=== PATIENT | male | born 1950 | race Caucasian/White ===

== ENCOUNTER 2020-02-24 19:46 | Emergency (ER) | payer MEDICARE, OTHER, SELFPAY ==
--- NOTE | 2020-02-24 19:51 | ED.SKABFB ---
HPI - Skin/Abscess/Foreign Bdy General Chief complaint: Wound/Laceration Stated complaint: thumb laceration Time Seen by Provider: 02/24/20 19:50 Source: patient and RN notes reviewed Limitations: no limitations History of Present Illness HPI narrative: The right-handed patient-- a smoker/ drinker, previously mostly healthy [employer] retiree with immunizations UTD-- presents with laceration. 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 He complains of mild pain and bleeding that is worse with motion, better with compression, from a transverse ,~2 cm, deep dermal laceration, at the flexor tuft/distal phalanges. No numbness, weakness, nail bed involvement Related Data Home Medications Medication Instructions Recorded Confirmed lisinopril 20 mg DAILY 02/24/20 02/24/20 Allergies Allergy/AdvReac Type Severity Reaction Status Date / Time No Known Allergies Allergy Verified 02/24/20 20:12 Review of Systems Review of Systems: Narrative: General/Constitutional: No weight loss,fever Eyes: N0: Redness,discharge Ears/Nose/Throat: No: Epistaxis,ear discharge Respiratory: Denies: Hemoptysis Gastrointestinal: No Vomiting, Bleeding-rectal Skin: No Lumps, eruption Neurologic: No Focal Weakness,Sz Hematologic: Denies: Petechiae/Purpura Psychiatric: No: Suicida ideationl All Other Systems: Reviewed and Negative FOR[facility]LY [facility], [facility] Social History Social History Gender identity (if verbalized by the patient): Male Comments At time of signature, agree with nursing past medical, surgical, social and family history. There is no relevant family history pertinent to the presenting complaint Exam Narrative: Exam Narrative: General Appearance: Well appearing,, Conjunctiva clear Ears: External ear normal, Auditory canal normal Nose: Normal nose, Nares clear Mouth/Throat: Normal appearing, Normal lips, Supple Respiratory: Airway patent, No respiratory distress Skin: Warm, Dry, Normal color; 2 cm, transverse flexor, deep dermal laceration of the left thumb tuft MS thumb: Nl strength (mostly intact, limited flexion/extension by pain), Tenderness- tuft, with mild decreased ROM), no swelling , Other (no anterior drawer, no collateral laxity, Neurological: A&O x3, Normal affect Course Vital Signs Vital signs: Vital Signs Temperature 97.4 F L 02/24/20 19:57 Pulse Rate 99 01/12/21 19:57 Respiratory Rate 18 02/24/20 19:57 Blood Pressure 159/90 H 02/24/20 19:57 Pulse Oximetry 97 02/24/20 19:57 Temperature 97.4 F L 02/24/20 19:57 Pulse Rate 99 02/24/20 19:57 Respiratory Rate 18 02/24/20 19:57 Blood Pressure 159/90 H 02/24/20 19:57 Pulse Oximetry 97 02/24/20 19:57 Procedures Laceration Laceration 1: Date: 02/24/20 Site: hand (thumb) Side (If applicable): left Size (cm): 2 Description: linear Depth: simple, single layer Local Anesthetic: other anesthetic (LET) Amount of anesthesia used (mL): 2 Pre-repair: irrigated ====== Skin Level ====== Skin layer closed with: nylon Size (cm): 5-0 Number of sutures: 3 Technique: simple, interrupted ====== Subcutaneous Layer ====== ====== Muscle Layer ====== ====== Tendon Layer ====== Discharge Plan Discharge Clinical Impression: Laceration Patient Disposition: Home, Self-Care Condition: Improved Instructions: Finger Laceration (ED) Additional Instructions: Remove stitches in about 6 days, then Steri-Strip/butterfly bandage Prescriptions: New mupirocin 2 % ointment 1 applic TOPICAL TID Qty: 30 RF: 0 cephalexin 500 mg capsule 500 mg PO TID Qty: 10 RF: 0 No Action lisinopril 20 mg tablet 20 mg DAILY RF: 0 Follow-up/Referrals: UNKNOWN,DOCTOR [Primary Care Provider] -
[2020-02-24 19:57] VITALS: BP 159/90; PULSE 99; RESP 18; TEMP 36.3; O2SAT 97
[2020-02-24] MEDS: LIDOCAINE, EPINEPHRINE, TETRACAINE VISCOUS SOLN 3 ML TOPICAL (19:59)
--- NOTE | 2020-02-24 20:32 | PC.NURSE ---
corrected 1.5 cm laceraton to left thumb
== END 2020-02-24 20:28 | disposition home or self-care (01) ==
PROVIDERS: Emergency Provider Emergency Medicine
DX: S61.012A Laceration without foreign body of left thumb without damage to nail, initial encounter (principal); W26.0XXA Contact with knife, initial encounter; I10 Essential (primary) hypertension
CPT/HCPCS: 12001; 99213; G0463

== ENCOUNTER 2022-05-26 08:30 | Outpatient (CLI) | payer MEDICARE, OTHER, SELFPAY ==
--- NOTE | ~2022-05-26 | CT_ITS ---
EXAMINATION: CT lung screening DATE: 05/26/2022 08:50 INDICATION: Screening for lung cancer. History of tobacco dependence. TECHNIQUE: Computed tomography (CT) of the chest was performed without intravenous contrast. The dose -length product was 121.88 mGy-cm. Automated exposure control and iterative reconstruction technique were employed. COMPARISON: Chest x-ray dated 05/20/2012 FINDINGS: There is atherosclerosis of the aorta, great vessels and coronary arteries. Heart size norm al. No significant pleural or pericardial effusion. Upper abdomen is unremarkable. No thoracic lympha denopathy. There are calcified mediastinal lymph nodes, consistent with chronic granulomatous disease . Severe bullous emphysema. There is a 2 mm right upper lobe nodule, image 42. There is a 4 mm right middle lobe nodule, image 109. There is dependent atelectasis. Calcified granuloma left lung base. No acute osseous abnormality. No focal lytic or blastic lesions. IMPRESSION: 1. Lung-RADS category 2: Benign appearance or behavior. Continue annual screening with noncontrast lo w-dose chest CT in 12 months. Reviewed, dictated and finalized at location B. IMPRESSION: 1. Lung-RADS category 2: Benign appearance or behavior. Continue annual screeni ng with noncontrast low-dose chest CT in 12 months.
== END 2022-05-26 08:31 | disposition home or self-care (01) ==
PROVIDERS: PCP Family Medicine; Visit Provider Family Medicine
DX: Z12.2 Encounter for screening for malignant neoplasm of respiratory organs (principal); F17.210 Nicotine dependence, cigarettes, uncomplicated
CPT/HCPCS: 71271

== ENCOUNTER 2022-06-27 00:49 | Day surgery (SDC) | payer MEDICARE, OTHER, SELFPAY ==
[2022-06-14 13:29] VITALS: BMI 24.5
--- NOTE | 2022-06-27 09:32 | P.PNAN_ITS ---
Anes - Initial Pre Proc Eval Procedure: Operation Date: 06/27/22 13:00 Proposed Procedures p Esophagogastroduodenoscopy & Screening Colonoscopy - Mj Nino MD Date/Time: 06/27/22 09:32 Surgeon: Mj Nino MD Pre Op Diagnosis: neoplasm screening, Upper Abdominal Pain Patient Data Age: 71 Gender: M Height: 1.73 m Weight: 73 kg Allergies Allergy/AdvReac Type Severity Reaction Status Date / Time No Known Allergies Allergy Verified 06/27/22 10:42 Home Medications Medication Instructions Recorded Confirmed Type albuterol sulfate 90 mcg/actuation 1 puff inhalation Q4H PRN Wheezing 05/15/22 06/27/22 History aerosol inhaler amlodipine 5 mg tablet 5 mg PO DAILY #90 tabs 05/15/22 06/27/22 Rx lisinopril 20 mg tablet 20 mg PO DAILY #90 tabs 05/22/22 06/27/22 Rx umeclidinium 62.5 mcg-vilanterol 1 inh inhalation DAILY #60 ea 05/22/22 06/27/22 Rx 25 mcg/actuation powdr for inhalation rosuvastatin 5 mg tablet 5 mg PO DAILY #10 tabs 05/25/22 06/27/22 Rx Patient hx anesthesia problems: none Family hx anesthesia problems: none Results Review: All pre-operative results and documents have been reviewed as part of the pre- operative evaluation. [facility] Past Medical History Medical History (Updated 05/15/22 @ 16:29 by Goyo Dinero MD) Cigarette nicotine dependence with nicotine-induced disorder COPD (chronic obstructive pulmonary disease) Essential (primary) hypertension Hypercholesteremia Obstructive sleep apnea Social History Social History (Updated 05/15/22 @ 16:12 by Milena Fernandez MA) Smoking packs per day: 0.5 Smoking cigarettes per day: 10.0 Years smoked: 50 Smoking pack-years: 25.00 Smoking status: Current every day smoker Tobacco type: cigarettes Second hand tobacco smoke exposure: Yes Alcohol intake: current Drinks per week: 15 Substance use: never Substance use type: does not use Lack of Transportation: No Lack of Food: Never True Current Housing: I Have Housing Concerned About Future Housing: No Difficulty Paying Gas/Electric Bills: No Difficulty Paying for Meds: No Currently Unemployed: No Difficulty w/ Childcare or Family Care: No Living arrangements: with family Occupation/Education: retired Gender identity (if verbalized by the patient): Male Sexual Orientation (if Verbalized by the Patient): Straight or Heterosexual Spiritual care concerns: No Anes - Eval Final PreProcedure Day of Procedure 06/27/22 09:32 Patient weight: obese Heart: regular rate and rhythm Lungs: clear to auscultation and normal air movement Airway: Mallampati scale class II Neurological: alert and oriented Last oral intake: >/= 8 hours ASA classification: III Emergent: no Anesthetic plan: proceed Anesthesia type and monitoring: general GIVS Results Review: All pre-operative results and documents have been reviewed as part of the pre-operative evaluation. Informed Consent: The patient's anesthetic plan and its attendant risks and benefits were discussed with the patient/family/POA. Questions were solicited and answers provided to the satisfaction of the patient/family/POA.
[2022-06-27 10:45] VITALS: BP 128/74; PULSE 93; RESP 18; TEMP 36.5; O2SAT 97; BMI 24.5
[2022-06-27] MEDS: LACTATED RINGERS 1,000 ML 150 ML IV CONT (10:56)
--- NOTE | 2022-06-27 11:18 | PM.HPGS ---
History of Present Illness History of Present Illness Consent: Risks, benefits, and alternatives have been discussed and questions answered. Patient agrees to proceed with procedure. Chief complaint: neoplasm screening, Upper Abdominal Pain Narrative: Faustino Magallanes is a 71 year old male Seen at the request of Dr. Dinero. Patient per request colonoscopy. Patient has had 2 prior colonoscopies that were unremarkable. Patient reports his weight appetite bowel movements are normal. In the past he had bleeding attributed to hemorrhoids. He underwent hemorrhoidectomy and has had no further bleeding. Currently bowel habits are normal. He recently complains of rather vague mid epigastric pain of uncertain nature. This is not related to diet. Not related to activity. Not related to bowel habits. He states that is a type of nausea and rather discomfort. He is not tender. He requests EGD to evaluate more thoroughly. Patient denies any prior history of ulcer disease. His family history is noncontributory. Review of Systems Review of Systems: Review of systems noncontributory. [facility] Past Medical History Medical History (Updated 06/27/22 @ 11:20 by Mj Nino MD) Cigarette nicotine dependence with nicotine-induced disorder COPD (chronic obstructive pulmonary disease) Essential (primary) hypertension Hypercholesteremia Obstructive sleep apnea Social History Social History (Updated 05/15/22 @ 16:12 by Mliena Fernandez MA) Smoking packs per day: 0.5 Smoking cigarettes per day: 10.0 Years smoked: 50 Smoking pack-years: 25.00 Smoking status: Current every day smoker Tobacco type: cigarettes Second hand tobacco smoke exposure: Yes Alcohol intake: current Drinks per week: 15 Substance use: never Substance use type: does not use Lack of Transportation: No Lack of Food: Never True Current Housing: I Have Housing Concerned About Future Housing: No Difficulty Paying Gas/Electric Bills: No Difficulty Paying for Meds: No Currently Unemployed: No Difficulty w/ Childcare or Family Care: No Living arrangements: with family Occupation/Education: retired Gender identity (if verbalized by the patient): Male Sexual Orientation (if Verbalized by the Patient): Straight or Heterosexual Spiritual care concerns: No Meds Home Medications and Allergies Home Medications Medication Instructions Recorded Confirmed Type albuterol sulfate 90 mcg/actuation 1 puff inhalation Q4H PRN Wheezing 05/15/22 06/27/22 History aerosol inhaler amlodipine 5 mg tablet 5 mg PO DAILY #90 tabs 05/15/22 06/27/22 Rx lisinopril 20 mg tablet 20 mg PO DAILY #90 tabs 05/22/22 06/27/22 Rx umeclidinium 62.5 mcg-vilanterol 1 inh inhalation DAILY #60 ea 05/22/22 06/27/22 Rx 25 mcg/actuation powdr for inhalation rosuvastatin 5 mg tablet 5 mg PO DAILY #10 tabs 05/25/22 06/27/22 Rx Allergies Allergy/AdvReac Type Severity Reaction Status Date / Time No Known Allergies Allergy Verified 06/27/22 10:42 Vital Signs Vital Signs - 24 hr 06/27/22 10:45 Temperature 97.7 F Pulse Rate 93 Respiratory Rate 18 Blood Pressure 128/74 Pulse Oximetry 97 Oxygen Delivery Room Air Exam Narrative: Physical exam reveals patient to be alert. Vital signs stable. HEENT exam is unremarkable. Patient is anicteric. Lungs are clear to auscultation and percussion. Heart is without murmur or extra sounds. Abdomen bowel sounds are present soft nontender with no organomegaly. Digital external rectal exam normal. Assessment and Plan Assessment and plan (1) Encounter for screening colonoscopy: Code(s): Z12.11 - Encounter for screening for malignant neoplasm of colon Status: Acute Assessment and Plan: Patient presents for screening colonoscopy. He appears to be at average risk for colon polyps. Further recommendations will be given after endoscopy. (2) Abdominal pain:
--- NOTE | 2022-06-27 12:09 | SUR.OPER ---
EGD completed 1201, Colonoscopy started at 1206
[2022-06-27] MEDS: SIMETHICONE ORAL SUSPENSION 20 MG/0.3 ML 30 ML BOTTLE 0.6 ML IRRIGATION (12:13)
[2022-06-27 12:23] VITALS: BP 93/58; PULSE 81; RESP 25; O2SAT 96
[2022-06-27 12:33] VITALS: BP 107/66; PULSE 77; RESP 17; O2SAT 96
[2022-06-27 12:43] VITALS: BP 128/73; PULSE 64; RESP 21; O2SAT 98
== END 2022-06-27 12:56 | disposition home or self-care (01) ==
PROVIDERS: PCP Family Medicine; Visit Provider Internal Medicine Gastroenterology
PROC: 0DJ08ZZ Inspection of Upper Intestinal Tract, Via Natural or Artificial Opening Endoscopic (ICD-10-PCS; CPT 43235; principal; 2022-06-27 13:00)
DX: Z12.11 Encounter for screening for malignant neoplasm of colon (principal); K52.9 Noninfective gastroenteritis and colitis, unspecified; K64.8 Other hemorrhoids; K57.30 Diverticulosis of large intestine without perforation or abscess without bleeding; J44.9 Chronic obstructive pulmonary disease, unspecified; I10 Essential (primary) hypertension; E78.00 Pure hypercholesterolemia, unspecified; G47.33 Obstructive sleep apnea (adult) (pediatric); F17.210 Nicotine dependence, cigarettes, uncomplicated; Z79.51 Long term (current) use of inhaled steroids
CPT/HCPCS: 45380; 87081; 88305; J2704; J7120

== ENCOUNTER 2023-03-13 20:41 | Emergency (ER) | payer MEDICARE, OTHER, SELFPAY ==
--- NOTE | ~2023-03-13 | XR_ITS ---
Clinical Indication: Palpitations PA and lateral views of the chest: Comparison: 05/20/2012 Findings: There is linear scarring or atelectasis right lung base. Calcified granuloma noted left pawan g base. The lungs are otherwise clear, without evidence of focal consolidation or pleural effusion. P ossible COPD. Cardiomediastinal silhouette is within normal limits. Bones and soft tissues are unrema rkable. Impression: Probable COPD. No acute pulmonary abnormality evident otherwise. Reviewed, dictated and finalized at location M. L MAKER Impression: Probable COPD. No acute pulmonary abnormality evident otherwise.
[2023-03-13 20:49] VITALS: BP 199/101; PULSE 98; RESP 20; TEMP 36.5; O2SAT 98
--- NOTE | 2023-03-13 20:51 | ECG_ITS ---
Measurements Intervals [place] Rate: 84 P: 35 HI: 143 QRS: 33 QRSD: 93 T: 58 QT: 361 QTc: 428 Interpretive Statements SINUS RHYTHM NORMAL ECG NO PREVIOUS ECG AVAILABLE FOR COMPARISON Electronically Signed On 03-13-2023 21:47:21 RN OR LPN by Jerald Ruiz D.O.
[2023-03-13 23:44] VITALS: PULSE 87
[2023-03-13 23:45] VITALS: BP 160/99; PULSE 86; RESP 18; TEMP 36.6; O2SAT 96
[2023-03-13 23:47] VITALS: O2SAT 96
--- NOTE | 2023-03-14 | ECG_ITS ---
Measurements Intervals [place] Rate: 82 P: 24 [place]: 156 QRS: 15 QRSD: 90 T: 55 QT: 368 QTc: 431 Interpretive Statements SINUS RHYTHM NORMAL ECG COMPARED TO ECG 03/13/2023 20:54:00 NO SIGNIFICANT CHANGES Electronically Signed On 03-14-2023 6:46:10 STOCKLAYER by Jerald Ruiz D.O.
[2023-03-14 00:10] LABS: Basophils Percent Auto 0.3 % (0.2-1.2); Eosinophils Percent Auto 0.1 % (0-4.4); Hematocrit 47.5 % (42.0-52.0); Hemoglobin 15.9 g/dL (14.0-18.0); Immature Granulocyte Absolute 0.04 K/mm3 (0.00-0.031); Immature Granulocyte Percent A 0.3 % (0-0.5); Lymphocytes Absolute Auto 2.07 K/mm3 (0.9-3.2); Mean Corpuscular HGB Conc 33.5 g/dl (32-36); Mean Corpuscular Hemoglobin 35.4 pg (26-34); Mean Corpuscular Volume 105.8 fl (80-100); Mean Platelet Volume 10.1 fl (7.4-10.4); Monocytes Absolute Auto 1.2 K/mm3 (0.1-0.6); Monocytes Percent Auto 9.9 % (2.6-8.5); Neutrophils Absolute Auto 8.8 K/mm3 (1.3-6.7); Neutrophils Percent Auto 72.4 % (45.5-73.1); Platelet Count Result 261 k/mm3 (150-375); Red Blood Count 4.49 M/mm3 (4.6-6.20); Red Cell Distribution Width 14.6 % (11.5-14.5); White Blood Count 12.2 K/mm3 (4.5-10.0)
[2023-03-14 00:17] LABS: Prothrombin Time 13.8 Seconds (11.1-14.7)
[2023-03-14 00:18] LABS: Alanine Aminotransferase 29 U/L (6-50); Albumin Level 4.3 g/dL (3.5-5.1); Alkaline Phosphatase 123 U/L (38-126); Anion Gap 8 mmol/L (8-16); Aspartate Amino Transferase 43 U/L (17-59); Bilirubin,Total 1.4 mg/dL (0.2-1.3); Blood Urea Nitrogen 9 mg/dL (9-20); Calcium 9.5 mg/dL (8.4-10.2); Carbon Dioxide 27 mmol/L (22-30); Chloride 102 mmol/L (98-107); Estimated CRCL calculation 78 ml/min; Estimated Glomerular Filt Rate > 60; Glucose 110 mg/dL (65-110); Lipase 57 U/L (23-300); Potassium 3.7 mmol/L (3.4-5.0); Sodium 137 mmol/L (137-145)
[2023-03-14 00:30] LABS: Troponin I < 0.012 ng/mL (0.000-0.034)
[2023-03-14 01:15] VITALS: BP 171/95; PULSE 72; RESP 16; O2SAT 95
--- NOTE | 2023-03-14 02:47 | ECG_ITS ---
Measurements Intervals [place] Rate: 72 P: 35 SC: 159 QRS: 16 QRSD: 89 T: 56 QT: 384 QTc: 423 Interpretive Statements SINUS RHYTHM NORMAL ECG COMPARED TO ECG 03/14/2023 00:06:09 NO SIGNIFICANT CHANGES Electronically Signed On 03-14-2023 6:10:12 INDUSTRIAL RELATIONS DIRECTOR by Jerald Ruiz D.O.
[2023-03-14 03:11] VITALS: BP 185/104; PULSE 74; RESP 18; O2SAT 92
[2023-03-14 03:30] LABS: Troponin I < 0.012 ng/mL (0.000-0.034)
--- NOTE | 2023-03-14 04:15 | ED.GENADULT ---
HPI - General Adult General Chief complaint: Arrhythmia/Palpitations Stated complaint: htn, palpitations Time Seen by Provider: 03/14/23 02:05 History of Present Illness HPI narrative: This is a 72-year-old male presents ED with chief complaint palpitations. Patient has been having a fluttering in his chest for several months. He has seen a hog cooler and has an appointment to get a Holter monitor in 2 days. Patient came in today because he noticed that in addition to his typical palpitations his blood pressure was elevated. The patient has recently been taking off of 1 of his blood pressure medications by his primary care physician. At this time the patient is resting comfortably with no flutter in his chest, no chest pain shortness of breath or other symptoms. Related Data Allergies Allergy/AdvReac Type Severity Reaction Status Date / Time No Known Allergies Allergy Verified 03/12/23 14:57 [facility] Past Medical History Medical History (Updated 03/14/23 @ 04:22 by Keron Mondragon MD) Alcohol use disorder, moderate, in early remission Atherosclerosis of aorta Atherosclerotic heart disease of [place] coronary artery without angina pectoris Cigarette nicotine dependence with nicotine-induced disorder COPD (chronic obstructive pulmonary disease) Essential (primary) hypertension GERD without esophagitis Hypercholesteremia Obstructive sleep apnea Family History Family History (Updated 03/13/23 @ 14:45 by CYNDI Santiago) Father Heart disease COPD (chronic obstructive pulmonary disease) Mother Dementia Social History Social History Smoking packs per day: 0.5 Smoking cigarettes per day: 10.0 Years smoked: 50 Smoking pack-years: 25.00 Smoking status: Current every day smoker Tobacco type: cigarettes Second hand tobacco smoke exposure: Yes Alcohol intake: current Drinks per week: 15 Substance use: never Substance use type: does not use Lack of Transportation: No Lack of Food: Never True Current Housing: I Have Housing Concerned About Future Housing: No Difficulty Paying Gas/Electric Bills: No Difficulty Paying for Meds: No Currently Unemployed: No Education: Associate Degree Difficulty w/ Childcare or Family Care: No Living arrangements: with family Occupation/Education: retired Gender identity (if verbalized by the patient): Male Sexual Orientation (if Verbalized by the Patient): Straight or Heterosexual Spiritual care concerns: No Exam Narrative: APPEARANCE: No apparent distress. Head: atraumatic. EYES: EOMI, NOSE: Atraumatic NECK: Trachea midline RESPIRATORY: No increased rate of breathing, clear to auscultation CARDIOVASCULAR: RRR, no peripheral edema ABDOMINAL: Non-distended MUSCULOSKELETAl: No obvious deformities, no significant tenderness to palpation over the ribcage, no crepitus NEURO: Alert. Moving 4/4 extremities SKIN:: Warm, dry. Normal color PSYCHIATRIC: Normal affect Course Vital Signs Vital signs: Vital Signs Temperature 97.7 F 03/13/23 20:49 Pulse Rate 98 03/13/23 20:49 Respiratory Rate 20 03/13/23 20:49 Blood Pressure 199/101 H 03/13/23 20:49 Pulse Oximetry 98 03/13/23 20:49 Temperature 97.8 F 03/13/23 23:45 Pulse Rate 74 03/14/23 03:11 Respiratory Rate 18 03/14/23 03:11 Blood Pressure 185/104 H 03/14/23 03:11 Pulse Oximetry 92 03/14/23 03:11 Oxygen Delivery Room Air 03/13/23 23:47 Medical Decision Making [facility] Narrative Medical decision making narrative: -Course: 72-year-old male presenting ED with chief complaint of palpitations and elevated blood pressure. Patient actually just been taken off of the blood pressure medication by his primary care physician. He may need to go back on it. The rest the patient's workup was unremarkable including 2- troponins chest x-ray and EKG. Patient has foll
[2023-03-14 04:29] VITALS: BP 145/65; PULSE 77; RESP 16; TEMP 36.6; O2SAT 95
== END 2023-03-14 04:30 | disposition home or self-care (01) ==
PROVIDERS: Emergency Provider Emergency Medicine; PCP Family Medicine
DX: R00.2 Palpitations (principal); I10 Essential (primary) hypertension; J44.9 Chronic obstructive pulmonary disease, unspecified; K21.9 Gastro-esophageal reflux disease without esophagitis; I70.0 Atherosclerosis of aorta; I25.10 Atherosclerotic heart disease of native coronary artery without angina pectoris; E78.00 Pure hypercholesterolemia, unspecified; G47.33 Obstructive sleep apnea (adult) (pediatric); F17.210 Nicotine dependence, cigarettes, uncomplicated
CPT/HCPCS: 36415; 71046; 80053; 83690; 84484; 85025; 85610; 85730; 93005; 99284

== ENCOUNTER 2023-05-29 10:54 | Outpatient (CLI) | payer MEDICARE, OTHER, SELFPAY ==
--- NOTE | ~2023-05-29 | CT_ITS ---
CT Scan of the Chest without Contrast: Clinical Indication: Lung cancer screening, nicotine dependence Technique: Contiguous sections were acquired throughout the chest without intravenous contrast. Dose reduction technique was used on this scan by utilizing automated exposure control and iterative recon struction technique. The dose-length product (DLP) was 95.81 mGy-cm. Findings: There is no evidence of any significant mediastinal, hilar or axillary lymphadenopathy. Atherosclerot ic calcifications of the aorta and coronary arteries are present. There is no evidence of pleural or pericardial effusion. There is severe emphysema with biapical bullous change. There is scarring at the lingula calcified gr anuloma. There is a subcentimeter peripheral right upper lobe pulmonary nodule (axial image 5). Images through the upper abdomen reveal no abnormalities. Impression: Lung RADS 2: Benign appearance. 12 month follow-up screening CT advised. Severe emphysema. Reviewed, dictated and finalized at [facility]. Impression: Lung RADS 2: Benign appearance. 12 month follow-up screening CT advised. Severe emphysema.
== END 2023-05-29 10:55 | disposition home or self-care (01) ==
LOC: ANHIMG 10:54
PROVIDERS: PCP Family Medicine; Visit Provider Family Medicine
DX: Z12.2 Encounter for screening for malignant neoplasm of respiratory organs (principal); Z87.891 Personal history of nicotine dependence; J43.9 Emphysema, unspecified
CPT/HCPCS: 71271

== ENCOUNTER 2023-07-31 14:29 | Outpatient (CLI) | payer MEDICARE, OTHER, SELFPAY ==
--- NOTE | ~2023-07-31 | CT_ITS ---
EXAMINATION: CT abdomen pelvis wo con DATE: 07/31/2023 14:45 INDICATION: Epigastric abdominal pain. TECHNIQUE: Computed tomography (CT) of the abdomen and pelvis was performed without intravenous contr ast. Automated exposure control and iterative reconstruction technique were employed. The dose-length product was 305.91 mGy-cm. COMPARISON: None. FINDINGS: The visualized portions of the lung bases demonstrate emphysema and mild atelectasis and sc arring. A calcified left lung nodule is consistent with old granulomatous disease. No pleural effusio n. The heart size is normal. No pericardial effusion. There is diffuse hepatic steatosis. The gallbla dder is normal. Calcifications in the spleen are consistent with old granulomatous disease. The pancr eas, adrenal glands, and right kidney are normal. There are hemorrhagic cysts in left kidney measurin g up to 9 mm. There is diverticulosis of the colon without evidence of diverticulitis. There are no d ilated loops of bowel. The appendix is normal. The prostate is mildly enlarged. There is calcified at herosclerosis of the aorta and many of the other arteries. There are no pathologically enlarged lymph nodes. There is no free intraperitoneal fluid. There is severe lower lumbar spondylosis. IMPRESSION: 1. Diffuse hepatic steatosis. 2. Emphysema. Reviewed, dictated and finalized at location A.
== END 2023-07-31 14:30 | disposition home or self-care (01) ==
LOC: ANHIMG 14:30
PROVIDERS: PCP Family Medicine; Visit Provider Family Medicine
DX: R63.4 Abnormal weight loss (principal); R63.0 Anorexia; R10.13 Epigastric pain; K76.0 Fatty (change of) liver, not elsewhere classified; J43.9 Emphysema, unspecified
CPT/HCPCS: 74176

== ENCOUNTER 2023-10-21 17:22 | Emergency (ER) | payer MEDICARE, OTHER, SELFPAY ==
--- NOTE | 2023-10-21 17:26 | ED.EXTPRO ---
HPI - Extremity Problem General Chief complaint: Skin/Abscess/Foreign Body Stated complaint: lt bicep injury Time Seen by Provider: 10/21/23 17:25 Source: patient Mode of arrival: ambulatory Limitations: no limitations History of Present Illness HPI Narrative: Faustino is a 72-year-old male patient presenting to the clinic today with complaints of a left skin tear to the left upper arm that occurred today. He reports he fell in a ditch home. Tetanus is up today within the last 5 years. Reports that this stitches a drainage ditch with a lot of irrigation service concerned about infection. Related Data Home Medications Medication Instructions Recorded Confirmed aspirin 81 mg tablet,delayed 81 mg PO DAILY 10/03/23 10/21/23 release mecobalamin (vitamin B12) 1,000 1,000 mcg PO DAILY 10/03/23 10/21/23 mcg chewable tablet melatonin 10 mg capsule 10 mg PO QHS 10/03/23 10/21/23 omeprazole 20 mg capsule,delayed 20 mg PO DAILY 10/21/23 10/21/23 release Allergies Allergy/AdvReac Type Severity Reaction Status Date / Time No Known Allergies Allergy Verified 10/21/23 17:27 Review of Systems Review of Systems: Pertinent positives per HPI. Patient denies any fever, chills, rash, headache, visual changes, dizziness, cough, runny nose, sore throat, shortness of breath, chest pain, palpitations, nausea, vomiting, diarrhea, constipation, abdominal pain, or any urinary issues. [facility] Past Medical History Medical History Alcohol use disorder, moderate, in early remission Atherosclerosis of aorta Atherosclerotic heart disease of [place] coronary artery without angina pectoris Cigarette nicotine dependence with nicotine-induced disorder COPD (chronic obstructive pulmonary disease) Essential (primary) hypertension GERD without esophagitis Hypercholesteremia Major depressive disorder Nonsustained paroxysmal ventricular tachycardia Obstructive sleep apnea Family History Family History Father Heart disease COPD (chronic obstructive pulmonary disease) Mother Dementia Social History Social History Smoking packs per day: 0.5 Smoking cigarettes per day: 10.0 Years smoked: 50 Smoking pack-years: 25.00 Smoking status: Current every day smoker Tobacco type: cigarettes Second hand tobacco smoke exposure: Yes Alcohol intake: current Drinks per week: 15 Substance use: never Substance use type: does not use Do You Feel Safe in your Home?: Yes Lack of Transportation: No Lack of Food: Never True Current Housing: I Have Housing Concerned About Future Housing: No Difficulty Paying Gas/Electric Bills: No Difficulty Paying for Meds: No Currently Unemployed: No Education: Associate Degree Difficulty w/ Childcare or Family Care: No Living arrangements: with family Occupation/Education: retired Gender identity (if verbalized by the patient): Male Sexual Orientation (if Verbalized by the Patient): Straight or Heterosexual Spiritual care concerns: No Comments At the time of my signature, I reviewed and agree with the nursing past medical, surgical, social, and family history. There is no relevant family history pertinent to the patient complaint. Exam Narrative: General: Well-developed, well nourished, in no apparent distress Head: Normocephalic, atraumatic. Cardio: Regular rate and rhythm, s1 and s2 normal, no murmur appreciated. Resp: Clear to auscultation bilaterally, no rhonchi, rales, wheezing or rubs. Integumentary: [place], warm, and dry, complete superficial skin tear measuring 9.5 by 7 cm to the left upper arm. Bleeding controlled Course Course Emergency Course: Portions of this record may have been created with voice recognition software. Level of Care: Express Care
[2023-10-21 17:35] VITALS: BP 110/59; PULSE 78; RESP 18; TEMP 36.4; O2SAT 96
== END 2023-10-21 17:48 | disposition home or self-care (01) ==
PROVIDERS: Emergency Provider Nurse Practitioner Family; PCP Family Medicine
DX: S41.112A Laceration without foreign body of left upper arm, initial encounter (principal); W19.XXXA Unspecified fall, initial encounter; F17.210 Nicotine dependence, cigarettes, uncomplicated; I70.0 Atherosclerosis of aorta; I25.10 Atherosclerotic heart disease of native coronary artery without angina pectoris; J44.9 Chronic obstructive pulmonary disease, unspecified; I10 Essential (primary) hypertension; K21.9 Gastro-esophageal reflux disease without esophagitis; E78.00 Pure hypercholesterolemia, unspecified; Z79.82 Long term (current) use of aspirin
CPT/HCPCS: 99212; G0463

== ENCOUNTER 2024-05-19 11:21 | Outpatient (CLI) | payer MEDICARE, OTHER, SELFPAY ==
--- NOTE | ~2024-05-19 | XR_ITS ---
AP and oblique views of the left ribs Clinical History: Pain Findings: Probable fractures of the posterior left second and third ribs. There is a comminuted acute fracture of the left mid clavicle, with inferior displacement of the major distal fracture fragment by one full shaft width.. Lungs are clear, without focal consolidation or pleural effusion, aside fro m calcified left basilar granuloma. Cardiomediastinal contour is within normal limits. Soft tissues a re unremarkable. Impression: Comminuted displaced acute fracture of the mid left clavicular shaft, as detailed above. Suspected fracture of the posterior left second and third ribs. Reviewed, dictated and finalized at location M. Impression: Comminuted displaced acute fracture of the mid left clavicular shaft, as detail ed above. Suspected fracture of the posterior left second and third ribs.
--- NOTE | ~2024-05-19 | XR_ITS ---
XR clavicle LT Ordering provider: Goyo Dinero MD History: . R07.81 - Pleurodynia . Comparison: None. FINDINGS: BONES: Comminuted fracture in the midshaft of the left clavicle with displacement of the fragments. JOINT SPACES: Normal. No acromioclavicular separation. SOFT TISSUES: Normal. IMPRESSION: Comminuted fracture of the midshaft of the left clavicle. Reviewed, dictated and finalized at location A.
== END 2024-05-19 11:22 | disposition home or self-care (01) ==
LOC: MICIMG 11:24
PROVIDERS: PCP Family Medicine; Visit Provider Family Medicine
DX: R07.81 Pleurodynia (principal); S42.022A Displaced fracture of shaft of left clavicle, initial encounter for closed fracture; X58.XXXA Exposure to other specified factors, initial encounter
CPT/HCPCS: 71100; 73000

== ENCOUNTER 2024-05-23 15:04 | Outpatient (CLI) | payer MEDICARE, OTHER, SELFPAY ==
--- NOTE | 2024-05-23 | ECG_ITS ---
Test Date: 2024-05-23 15:27:31 Measurements Intervals [place] Rate: 68 P: 38 OK: 183 QRS: 20 QRSD: 91 T: 61 QT: 398 QTc: 424 Interpretive Statements SINUS RHYTHM NORMAL ECG No previous ECG available for comparison Electronically Signed On 05-23-2024 15:32:18 CDT by Jerald Ruiz D.O.
--- OUTSIDE RECORDS SUMMARY | 2024-05-23 15:10 | XMS_ITS | Clinical Summary ---
Author Organization [facility] Address [address] [place] [address] Care Team Providers Care Heel Builder Machine Name Role Phone Gooy Dinero MD Primary Care Provider [phone] Allergies No known active allergies Medications VENTOLIN HFA 108 (90 Base) MCG/ACT inhaler 11/02/2017 Act nicole lisinopril 20 MG tablet Take 20 mg by mouth daily. 1 08/11/2018 Active Active Problems No known active problems Immunizations Name Administration Dates Next Due Tdap (Historical Only-select from magnify glass) 10/16/2018 Family History Medical History Relation Comments Emphysema Father Relation Status Comments Father Social History Tobacco Use Types Packs/Day Years Used Date Smoking Tobacco: Every Day Cigarettes Smokeless Tobacco: Never Alcohol Use Standard Drinks/Week Comments Yes 0 (1 standard drink = 0.6 oz pur e alcohol) AUDIT-C Answer Date Recorded Frequency of Alcohol Consumption 2-4 times a sun10/16/2018 Average Number of Drinks Not on file 019 Frequency of Binge Drinking Not on file 05/2018 Sex and Gender Information Value Date Recorded Sex Assigned at Not on file Legal Sex Male 3:09 PM CDT Gender Identity Not on file Sexual Orientation Not on file Last Filed Vital Signs Vital Sign Reading Time Taken Comments Blood Pressure 134/80 10/16/2018 3:24 PM CDT Pulse 90 10/16/2018 3:24 PM CDT Temperature 36.8 C (98.3 F) 10/16/2018 3:24 PM CDT Respiratory Rate 18 10/16/2018 3:24 PM CDT Oxygen Saturation 97% 10/16/2018 3:24 PM CDT Inhaled Oxygen Concentration - - Weight 74.8 kg (165 lb) 10/16/2018 3:24 PM CDT Height 172.7 cm (5' 8 ) 10/16/2018 3:24 PM CDT Body Mass Index 25.09 10/16/2018 3:24 PM CDT Plan of Treatment Health Maintenance Due Date Last Done Comments Colorectal Cancer Screening Colonoscopy (10 Years) 1950 Pneumococcal Vaccine: 65+ Ye ars (1 of 2 - PCV) 10/28/1955 Hepatitis C 10/28/1967 Zoster Vaccines (1 of 2) 10/28/1999 Annual Medicare Wellness Visit 2014 COVID-19 Vaccine (1 - 2023-2 5 season) 2023 RSV Immunization or 60+ Years (1 - 1-dose 75+ series) 2024 DTaP, Tdap and Td Vaccines ( 2 - Td or Tdap) 10/16/2028 10/16/2018 Meningococcal B Vaccine Aged Out No l onger eligible based on patient's age to complete this topic Meningococcal Vaccine Aged Out No temitope damian eligible based on patient's age to complete this topic RSV Immunizations Under 20 Months Aged Out No longer eligible based on patient's age to complete [place] [address] MEDICARE [facility] Care Teams Heel Builder Machine Relationship Specialty Start Date End Date Goyo Dinero MD [address] [place] [address] PCP - General FAMILY PRACTICE 10/16/18
--- OUTSIDE RECORDS SUMMARY | 2024-05-23 15:10 | XMS_ITS | Clinical Summary ---
Author Organization [facility] Address [address] [place] [address] Care Team Providers Care Entertainment Director Name Role Phone Unavailable Primary Care Provider Unavailabl e Source Comments [facility],non-owned Affiliates and Associated Physician Practices is amultiple site organization consisting of ambulatory clinics and hospital sitesin [place], [place] and [place]. This disclosure is being madepursuant to the Care Everywhere program and may not contain all information available regarding this patient. Last updated 17.[facility] Social History Tobacco Use Types Packs/Day Years Used Date Smoking Tobacco: Never Assessed Sex and Gender Information Value Date Recorded Sex Assigned at Not on file Gender Identity Not on file Sexual Orientation Not on file Plan of Treatment Health Maintenance Due Date Last Done Comments COLOGUARD (AGES 45-75) - COL ON CA SCREENING 1949 COLON MONITORING 1949 COLONOSCOPY - COLON CA SCREENING 1949 CT COLONOGRAPHY - COLON CA SCREENING 1950 Colorectal Cancer Screening 1949 FIT - COLON CA SCREENING 1949 FLEX SIG - COLON CA SCREENING 1949 LIPID TESTING 1950 MEDICARE AWV 12 MONTHS 1950 HEPATITIS C SCREENING 10/23/1967 DTAP/TDAP/TD VACCINES (1 - Tdap) 1968 PNEUMOCOCCAL VACCINE 50+ (1 of 1 - PCV) 10/28/1999 ZOSTER VACCINE (1 of 2) 10/28/1999 COVID-19 VACCINE ( - 2023-2 5 season) 2023 DEPRESSION SCREENING 02/13/2024 INFLUENZA VACCINE (Season Ended) 2024 Respiratory Syncytial Virus (RSV) Vaccine Pt: or over 60 yrs (1 - 1-dose 75+ series) 2024 HEPATITIS B VACCINE Aged Out No longe r eligible based on patient's age to complete this topic HIB VACCINE Aged Out No longer eligi ble based on patient's age to complete this topic HPV VACCINE Aged Out No longer eligi ble based on patient's age to complete this topic MENINGOCOCCAL (Group B) VACC INE SHARED DECISION-MAKING Aged Out No longer eligibl e based on patient's age to complete this topic MENINGOCOCCAL GROUPS A/C/Y/W VACCINE Aged Out No longer eligible b ased on patient's age to complete this topic
--- OUTSIDE RECORDS SUMMARY | 2024-05-23 15:10 | XMS_ITS | Data Portability ---
Author Organization [facility] Main Office Address [address] [place] [address] Care Team Providers Care Manager Of Learning Name Role Phone ANTONINO WELLS Primary Care Provider ANTONINO WELLS Referring Provider Assessment Encounter Date Assessment Date Assessment LastModified by Organization Details LastModified Time 05/21/2024 05/21/2024 73-year-old patient presents today with left clavicle pain after a fall on Sunday. He states he figured it was broken so he waited till Sunday to call his PCP who ordered him an x-ray. He then made an appointment to come see us. He rates his pain today a 5/10. Not taking any medications for pain. States that he broke this clavicle in the past many years ago. He has history of COPD and smokes half a pack a day. Review of systems per patient questionnaire Imaging: X-rays reviewed with Dr. Marlow show left clavicle midshaft fracture with 100% displacement. Physical exam: Bruising throughout shoulder and down chest. Deformity over the clavicle with slight tenting. Tenderness with palpitation. Sensation intact throughout. We discussed that the recommended treatment for this fracture would be surgical fixation of the clavicle. Risks, benefits, and alternatives to surgery were discussed with the patient. Risks included but are not limited to pain, stiffness, infection, injury to other structures including nerves or blood vessels, need for future surgery, and anesthesia complications. The goal of surgery is to improve symptoms but there is no guarantee of any results and it is possible the condition is worse after surgery. Patient agreed and would like to proceed with left clavicle ORIF. He has a history of COPD and needs PCP clearance to proceed. We also spent 3 minutes discussing need for smoking cessation due to its effects on bone healing and increased risk of infection. [email or web address] Not available 05/21/2024 16:11:43 Plan of Treatment Reminders Order Date Submit Date Provider Last Modified By Organization Details Last Modified Time Details Appointments Surgery 2024 11:00A M Rodrigo Marlow MD Not available Not available Not available Post-Op 10 2024 09:20A M Sally Talavera NP Not available Not available Not available Lab None recorded . Referral None recorded . Procedures None recorded . Surgeries None recorded . Imaging None recorded . Medication Orders None recorded . Patient TargetsNo targets recorded. Patient InstructionsNo instructions recorded. Reason for Referral None Reported. Results Created Date Observation Date Name Description Value Unit Range Abnormal Flag Note LastModifiedBy Organization Detail LastModifiedTime 05/22/1905/19/2024 XR, clavi christelle No observ ation record ed. [email or web address] Not Available 10/2024 11:11:00 Result Notes None recorded. Problems Name Problem SNOMED Code Status Onset Date Resolution Date Notes Provider Name and Address Organization Details Recorded Time Pain of left shoulder joint 488534833703288 09 Active 2024 JOSELITO Cornell [facility], [place] 15:09:05 Closed fracture of left clavicle 371569466357307 05 Active 2024 Sally Talavera NP [address], [address] , [place] 16:12:08 Problem Notes None recorded. Procedures Surgical History Date Name Laterality Status Provider Name and Address Organization Details Recorded Time Foot Surgery completed JOSELITO [facility] [place] 05/21/2024 15:07:42 Imaging Results Imaging Date Name Status LastModified by Organiz ation Details LastModified Time 05/19/2024 XR, clavicle completed [email or web address] Information not available 05/21/2024 11:11:00 Procedure Notes None recorded. Medical Equipment None Reported. Allergies No known drug allergies Medications Name Sig Start Date Stop Date Status Note LastModified by Organization Details LastModified Time alprazolam 0.5 mg tablet TAKE 1 TABLET BY MOUTH EVERY DAY AT BEDTIME NEEDED FOR SLEEP active Not Available Not Available No t Available trazodone 100 mg tablet TAKE 1 TO 2 TABLETS BY MOUTH AT BEDTIME ONCE A DAY 05/21 completed Not Available Not Available Not Available triamcinolon e acetonide 0.1 % topical ointment APPLY TO BUMPS ON THE LEG TWICE A DAY NEEDED active Not Available Not Available No t Available Baby Aspirin 81 mg chewable tablet Chew 1 tablet every day by oral route. active Not Available Not Available No t Available amoxicillin 875 mg-potassium clavulanate 125 mg tablet TAKE 1 TABLET BY MOUTH TWICE A DAY 05/21 completed Not Available Not Available Not Available escitalopram 10 mg tablet Take 1 tablet every day by oral route. active Not Available Not Available No t Available metoprolol succinate 5mg active Not Available Not Available No t Available Ventolin HFA active Not Available Not Available Not Available Anarol active Not Available Not Availa ble Not Available Vitals Date Recorded Body height Body mass index (BMI) Body weight Pain severity - 0-10 verbal numeric rating [Score] - Reported Provider Name and Address Organization Details Last Updated DateTime 05/21/2024 172.72 cm 24.3 kg/m2 09813.78 g 5 JOSELITO [facility] [place] 05/21/2024 15:04:32 Social History Question Answer Notes LastModified by Organizat ion Details LastModified Time Tobacco Smoking Status Current Every Day Smoker JOSELITO Cornell [facility] [place] 05/21/2024 15:07:33 What Is Your Level Of Alcohol Consumption? None [email or web address] Information not available 05/21/2024 What Was The Date Of Your Most Recent Tobacco Screening? 05/21/2024 [email or web address] Information not available 05/21/2024 Sex: Unknown Functional Status None recorded. Mental Status None recorded. Family History Nothing Reported. Medical History Condition Response HEART DISEASE/HEART PROBLEMS Y COPD Y HYPERTENSION Y Past Encounters Encounter ID Performer Location Encounter Start Date Encounter Closed Date Diagnosis/Indication Diagnosis SNOMED-CT Code Diagnosis ICD10 Code Diagnosis Note [id number] Sally Talavera NP [facility] [place] [address] [place] [address] 05/21/2024 14:44:36 05/21/2024 15:59:52 Pain of left shoulder joint 1477017189 [id number] M25.512 Closed fra cture of left clavicle 8246251096 2461470 S42.022A Health Concerns Section Related Observation LastModified by Organization Detai ls LastModified Time None Recorded Concern Status LastModified by Organization Details LastModified Time None Recorded Advance Directives Directive None Recorded Payers Encounter Date Sequence Insurance Name Policy Number Policy Chavez Covered Member ID Chavez Member ID Guarantor Name 05/21/2024 1 [place] Faustino Magallanes [id number] Faustino Magallanes 05/21/2024 2 [employer] - FOR LIFE (MEDICARE SUPPLEMENT) Faustino Magallanes [id number] Faustino Magallanes
--- OUTSIDE RECORDS SUMMARY | 2024-05-23 15:10 | XMS_ITS | Encounter Summary ---
Author Organization [facility] Address [address] [place] [address] Care Team Providers Care Power Line Installer Name Role Phone Unavailable Primary Care Provider Unavailabl e Encounter Details Date Type Department Care Team (Late st Contact Info) Description 11/27/2023 Lab Requisition [facility] - DermPath Lab [address] [facility] [facility] [place] [address] Natalia Cowan DO [address] [facility] [address] [place] [address] Social History Tobacco Use Types Packs/Day Years Used Date Smoking Tobacco: Never Assessed Sex and Gender Information Value Date Recorded Sex Assigned at Not on file Gender Identity Not on file Sexual Orientation Not on file documented as of this encounter Plan of Treatment Not on file documented as of this encounter Procedures Procedure Name Priority Date/Time Associated Diagnosis Comments DERMATOPATHOLOGY Routine 11/27/2023 10:5 8 AM CDT documented in this encounter Results * DERMATOPATHOLOGY (11/27/2023 10:58 AM CDT) Case Report Dermatopathology Report Case: [id number] Authorizing Provider: Natalia Cowan DO Collected: 11/27/2023 10:58 AM Ordering Location: [facility] - Received: 11/28/2023 06:18 AM DermPath Lab Pathologist: Nataliya Osuna MD Specimen: Skin, right cheek 1:22 PM CDT DERMATOPATHOLOGY LABORATORY Final Diagnosis Specimen A. SKIN, right cheek: BASAL CELL CARCINOMA, PIGMENTED (C44.319) 4 1:22 PM CDT DERMATOPATHOLOGY LABORATORY Clinical History SK vs lentigo r/o MM 4 1:22 PM CDT DERMATOPATHOLOGY LABORATORY Gross Description Specimen A: Received is one formalin filled container labeled with the patient's name and designated right cheek. The specimen consists of a shave biopsy measuring 3x3x1 mm. Jar 0. 1:22 PM [facility] DERMATOPATHOLOGY LABORATORY Microscopic Description Specimen A. SKIN, right cheek: There are aggregates of basaloid cells with a high nuclear to cytoplasmic ratio and peripheral palisading. There is abundant melanin. 1:22 PM T DERMATOPATHOLOGY LABORATORY Disclaimer An external and internal positive and negative controls are appropriate for the histochemical, immunohistochemical and immunofluorescence stain(s) in this case (if any), except where stated explicitly. The performance characteristics of the stain(s) cited in this report were developed and its performance characteristic determined by the Dermatopathology Laboratory at [facility], directed by Dr. Zhanna Osuna. These tests need not be, and therefore are not, approved by the [place] Food and Drug Administration. The tests are used for clinical purposes. Billing Codes Specimen Charges Stain Charges 45564 1 1:22 PM CDT DERMATOPATHOLOGY LABORATORY Embedded Images 1:22 PM T DERMATOPATHOLOGY LABORATORY Pathology/Cytolo gy TISSUE SPECIMEN FROM SKIN / Unknown 11/27/2023 10:58 AM CDT 11/28/2023 6:18 AM CDT Natalia Cowan DO LAB - PATHOLOGY/C YTOLOGY ORDERABLES DERMATOPATHOLOGY LABORATORY [facility] - Department of Dermatology [address], [address] [phone] documented in this encounter Visit Diagnoses Not on filedocumented in this encounter
--- OUTSIDE RECORDS SUMMARY | 2024-05-23 15:10 | XMS_ITS | Clinical Summary ---
Author Organization [facility] Address [address] [place] [address] Care Team Providers Care Manager In Training Name Role Phone Goyo Dinero MD Primary Care Provider [phone] Allergies No known active allergies Medications umeclidinium-carolann anteroL (ANORO ELLIPTA) 62.5-25 mcg/actuation blister with device Inhale 1 puff daily Active aspirin 81 mg enteric coated tablet Take 1 tablet (81 mg total) by mouth daily 30 tablet 11 4 07/18/19 25 Active rosuvastatin (CRESTOR) 5 mg tablet 4 Active escitalopram (LEXAPRO) 10 mg tablet Take 1 tablet (10 mg total) by mouth daily 4 Active cyanocobalamin (Vitamin B-12) 1,000 mcg tabletIndication s:Prevention of Vitamin B12 Deficiency Take 1 tablet (1,000 mcg total) by mouth daily Active melatonin 10 mg tablet Active ALPRAZolam (XANAX) 0.5 mg tablet Take 1 tablet (0.5 mg total) by mouth daily as needed 4 Active metoprolol XL (TOPROL-XL) 50 mg extended release tabletIndication s:NSVT (nonsustained ventricular tachycardia) (HCC) Take 0.5 tablets (25 mg total) by mouth daily 4 10/01/19 25 Active albuterol HFA (PROVENTIL HFA,VENTOLIN HFA,PROAIR HFA) 90 mcg/actuation inhaler Inhale 2 puffs every 6 (six) hours as needed for wheezing Active buPROPion SR (ZYBAN) 150 mg 12 hr tablet Take 1 tablet (150 mg total) by mouth 2 (two) times a day 60 tablet 3 5 04/02/19 26 Active Active Problems No known active problems Encounters Date Type Department Care Team Description 04/02/2024 1:00 PM ICE GUARD TESTER Office Visit [facility] Cardiology [address] [place] [address] Trung Vital MD NSVT (nonsustained ventricular tachycardia) (HCC) (Primary Dx); Anxiety; Tobacco abuse from Last 3 Months Surgical History Surgery Date Site/Laterality Comments HEMORRHOID SURGERY Medical History Medical History Date Comments COPD (chronic obstructive pulmonary disease) (HC C) Sleep apnea Hypertension Atherosclerosis of aorta Atherosclerotic heart diseas e of [place] coronary artery without angina pectoris Family History Medical History Relation Name Comments Heart failure Brother Alzheimer's disease Mother Relation Name Status Comments Brother Father Mother Social History Tobacco Use Types Packs/Day Years Used Date Smoking Tobacco: Every Day Cigarettes Tobacco Cessation:Ready to Q uit: Not Asked; Counseling Given: Not Answered Sex and Gender Information Value Date Recorded Sex Assigned at Not on file Legal Sex Male 4:01 PM ICE GUARD TESTER Gender Identity Not on file Sexual Orientation Not on file Obstetrics History Last Filed Vital Signs Vital Sign Reading Time Taken Comments Blood Pressure 138/70 04/02/2024 12:48 PM ICE GUARD TESTER Pulse 70 04/02/2024 12:48 PM ICE GUARD TESTER Temperature - - Respiratory Rate - - Oxygen Saturation 95% 04/02/2024 12:48 PM ICE GUARD TESTER Inhaled Oxygen Concentration - - Weight 75.8 kg (167 lb) 04/02/2024 12:48 PM ICE GUARD TESTER Height 172.7 cm (5' 8 ) 04/02/2024 12:48 PM ICE GUARD TESTER Body Mass Index 25.39 04/02/2024 12:48 PM ICE GUARD TESTER Plan of Treatment Health Maintenance Due Date Last Done Comments Colon Cancer Screening-Colonoscopy 1950 Depression Screening 1950 Fall Risk Assessment 1950 Hepatitis C Screening 1950 Hepatitis B Screening 10/28/1967 Zoster Vaccine (1 of 2) 10/28/1999 Abdominal Aortic Aneurysm (A AA) Screen 2014 Well Visit 65+ 2014 Pneumococcal vaccine 65+ (2 of 2 - PPSV23) 07/07/2015 05/12/2015 Influenza Vaccine (#1) 2023 0, 11/09/2015, 11/24/2013 DTaP/Tdap/Td Vaccine (2 - Td or Tdap) 10/16/202805/2018 Procedures Procedure Name Priority Date/Time Associated Diagnosis Comments LIPID PANEL Routine 04/02/2024 12:43 PM ICE GUARD TESTER from Last 3 Months Results * Lipid panel (04/02/2024 12:43 PM ICE GUARD TESTER) SCRIBED Cholesterol, Total 164 <100 EXTERNAL LAB SCRIBED HDL 68 >40 EXTERNAL LAB SCRIBED LDL 86 <100 EXTERNAL LAB SCRIBED Triglycerides 50 <150 EXTERNAL LAB Blood 04/02/2024 12:4 3 PM ICE GUARD TESTER us Trung Vital MD LAB BLOOD ORDERABLES Final Resul t EXTERNAL LAB from Last 3 [place] [address] [place] [address] [place] [address] MEDICARE FOR LIFE Care Teams Manager In Training Relationship Specialty Start Date End Date Goyo Dinero MD [address] [place] [address] [place] [address] PCP - General Family Medicine 12/11/19
--- OUTSIDE RECORDS SUMMARY | 2024-05-23 15:10 | XMS_ITS | Referral Summary ---
Author Organization [facility] Address [address] [place] [address] Care Team Providers Care Professor Of Languages Name Role Phone Goyo Dinero MD Primary Care Provider [phone] Encounters Date Type Department Care Team Description 04/02/2024 1:00 PM EDGE TRIMMER MECHANIC Office Visit [facility] Cardiology [address] [place] [address] Trung Vital MD NSVT (nonsustained ventricular tachycardia) (HCC) (Primary Dx); Anxiety; Tobacco abuse from Last 3 Months Allergies No known active allergies Medications umeclidinium-carolann [...] extended release tabletIndication s:NSVT (nonsustained ventricular tachycardia) ([facility]) Take 0.5 tablets (25 mg total) by [...] Active Active Problems No known active problems Social History Tobacco Use Types Packs/Day Years Used Date Smoking Tobacco: Every Day Cigarettes Tobacco Cessation:Ready to Q uit: Not Asked; Counseling Given: Not Answered Sex and Gender Information Value Date Recorded Sex Assigned at Not on file Legal Sex Male 4:01 PM EDGE TRIMMER MECHANIC Gender Identity Not on file Sexual Orientation Not on file Last Filed Vital Signs Vital Sign Reading Time Taken Comments Blood Pressure 138/70 04/02/2024 12:48 PM EDGE TRIMMER MECHANIC Pulse 70 04/02/2024 12:48 PM EDGE TRIMMER MECHANIC Temperature - - Respiratory Rate - - Oxygen Saturation 95% 04/02/2024 12:48 PM EDGE TRIMMER MECHANIC Inhaled Oxygen Concentration - - Weight 75.8 kg (167 lb) 04/02/2024 12:48 PM EDGE TRIMMER MECHANIC Height 172.7 cm (5' 8 ) 04/02/2024 12:48 PM EDGE TRIMMER MECHANIC Body Mass Index 25.39 04/02/2024 12:48 PM EDGE TRIMMER MECHANIC Plan of Treatment Not on file Procedures Procedure Name Priority Date/Time Associated Diagnosis Comments LIPID PANEL Routine 04/02/2024 12:43 PM EDGE TRIMMER MECHANIC from Last 3 Months Results * Lipid panel (04/02/2024 12:43 PM EDGE TRIMMER MECHANIC) SCRIBED Cholesterol, Total 164 <100 EXTERNAL LAB SCRIBED HDL 68 >40 EXTERNAL LAB SCRIBED LDL 86 <100 EXTERNAL LAB SCRIBED Triglycerides 50 <150 EXTERNAL LAB Blood 04/02/2024 12:4 3 PM EDGE TRIMMER MECHANIC us Trung Vital MD LAB BLOOD ORDERABLES Final Resul t EXTERNAL LAB from Last 3 [place] [address] MEDICARE [employer] MEDICARE [employer] FOR LIFE Care Teams Professor Of Languages Relationship Specialty Start Date End Date Goyo Dinero MD [address] [place] [phone] PCP - General Family Medicine 12/11/19
--- OUTSIDE RECORDS SUMMARY | 2024-05-23 15:10 | XMS_ITS | Continuity of Care Document ---
Author Name [facility] Organization [facility] Care Team Providers Care Medical Tech Name Role Phone [facility] Unavailable Unavailable Problems Combined list of problems from Department of Defense and [facility] Affairs facilities. It does not include entries that were removed or entered in error. 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 exposures [facility] Hyperlipidemia Active Condition [facility] Hypertension Active Condition [facility] Insomnia Active Condition [facility] Sensorineural hearing loss of bilateral ears Active Condition [facility] Sleep apnea Active Condition [facility] Tobacco use Active Condition [facility] Diagnosis: ICD-10-CM E87.1 Hypo-osmolality and hyponatremia Active Diagnosis [facility] Diagnosis: ICD-10-CM H90.3 Sensorineural hearing loss, bilateral Active Diagnosis [facility] Diagnosis: ICD-10-CM R20.2 Paresthesia of skin Active Diagnosis [facility] Diagnosis: ICD-10-CM Z77.29 Contact with and exposure to other hazardous substances Active Diagnosis [facility] Diagnosis: ICD-10-CM H25.13 Age-related nuclear cataract, bilateral Active Diagnosis [facility] Diagnosis: ICD-10-CM F32.A Depression, unspecified Active Diagnosis [facility] Diagnosis: ICD-10-CM Z71.9 Counseling, unspecified Active Diagnosis [facility] Medications Combined list of outpatient medications from Department of Defense and Veterans Affairs facilities.Medications provided include 1) outpatient medications from the last 15 months, and 2) patient-reported medications. Medication Details Route Status Patient Instructions Prescription Expires Prescription Number Last Dispense Date Ordering Provider Order Date Order Qty Source NICOTINE 14MG/24HRS PATCH APPLY 1 PATCH TO SKIN SITE EVERY MORNING REMOVE OLD PATCH BEFORE APPLYING NEW ONE. ROTATE SITES. DO NOT SMOKE WHILE WEARING PATCH. TRANSD ERMAL ACTIVE 02/22/2025 [id number] JOSEY LAYNE 2024 28 [facility] VARENICLINE TAB STARTER PACK,53 TAKE 1 TABLET BY MOUTH DIRECTED FOR TOBACCO CESSATIO N START TAKING 1 WEEK BEFORE YOUR QUIT DATE. YOU MAY CONTACT [phone] FOR ADDITION AL SUPPORT. CALL YOUR PROVIDER 14 DAYS AFTER BEGINNIN G THERAPY TO REPORT PROGRESS AND TO REQUEST YOUR NEXT FILL. ORAL 12/23/2023 [id number] JOSEY LAYNEY 2023 1 [facility] Results Combined list of recent chemistry, hematology and other laboratory results from Department of [facility] and Veterans Affairs, ranging from 15 months to all on record, depending upon the facility. Order Name Results Value Reference Range Date Interpretation Specimen Comments Source VITAMIN B1 THIAMINE [MASS/VOLUM E] IN BLOOD 13 nmol/L 8 - 30 02/24 Specimen Type: BLOOD Comment: Vitamin supplementa tion within 24 hours prior to blood draw may affect the accuracy of the results. Ordering Provider: LINDA LAYNE Report Released Date/Time: Feb 22, 2024 10:20 AM Reporting Lab: [facility] [address] [facility] [address] Performing Lab: [facility] [id number] [place] [address] [facility] B12 COBALAMIN (VITAMIN B12) [MASS/VOLUM E] IN SERUM OR PLASMA 603 pg/mL 213 - 816 02/24 Specimen Type: SERUM No comment entered. Ordering Provider: LINDA LAYNE Report Released Date/Time: Feb 22, 2024 10:20 AM Reporting Lab: [facility] [facility] [address] Performing Lab: [facility] FOLATE (STL-MA) FOLATE [MASS/VOLUM E] IN SERUM OR PLASMA 12.3 ng/mL 7 - 20 02/24 Specimen Type: SERUM No comment entered. Ordering Provider: LINDA LAYNE SAY Report Released Date/Time: Feb 22, 2024 10:20 AM Reporting Lab: [facility] [place] [address] Performing Lab: [facility] BASIC METABOLIC PANEL CREATININE [MASS/VOLUM E] IN SERUM OR PLASMA 0.89 mg/dL 0.70 - 1.30 02/24 Specimen Type: PLASMA Comment: No hemolysis noted. Ordering Provider: LINDA LAYNE SAY Report Released Date/Time: Feb 22, 2024 10:20 AM Reporting Lab: [facility] [place] [address] Performing Lab: [facility] BASIC METABOLIC PANEL UREA NITROGEN [MASS/VOLUM E] IN SERUM OR PLASMA 16.0 mg/dL 9.0 - 25.0 02/24 Specimen Type: PLASMA Comment: No hemolysis noted. Ordering Provider: LINDA LAYNE SAY Report Released Date/Time: Feb 22, 2024 10:20 AM Reporting Lab: [facility] [place] [address] Performing Lab: [facility] BASIC METABOLIC PANEL GLUCOSE [MASS/VOLUM E] IN SERUM OR PLASMA 112 mg/dL 72 - 99 02/24 H Specimen Type: PLASMA Comment: No hemolysis noted. Ordering Provider: LINDA LAYNE SAY Report Released Date/Time: Feb 22, 2024 10:20 AM Reporting Lab: [facility] [place] [address] Performing Lab: [facility] [place] [id number] [facility] BASIC METABOLIC PANEL SODIUM [MOLES/VOLU ME] IN SERUM OR PLASMA 134 meq/L 136 - 145 02/24 L Specimen Type: PLASMA Comment: No hemolysis noted. Ordering Provider: LINDA LAYNE SAY Report Released Date/Time: Feb 22, 2024 10:20 AM Reporting Lab: [facility] [place] [address] Performing Lab: [facility] BASIC METABOLIC PANEL POTASSIUM [MOLES/VOLU ME] IN SERUM OR PLASMA 4.7 meq/L 3.5 - 5.0 02/24 Specimen Type: PLASMA Comment: No hemolysis noted. Ordering Provider: LINDA LAYNE SAY Report Released Date/Time: Feb 22, 2024 10:20 AM Reporting Lab: [facility] [place] [address] Performing Lab: [facility] [facility] BASIC METABOLIC PANEL CHLORIDE [MOLES/VOLU ME] IN SERUM OR PLASMA 101 meq/L 98 - 107 02/24 Specimen Type: PLASMA Comment: No hemolysis noted. Ordering Provider: LINDA LAYNE SAY Report Released Date/Time: Feb 22, 2024 10:20 AM Reporting Lab: [facility] [place] [address] Performing Lab: [facility] BASIC METABOLIC PANEL CARBON DIOXIDE, TOTAL [MOLES/VOLU ME] IN SERUM OR PLASMA 25 meq/L 22 - 31 02/24 Specimen Type: PLASMA Comment: No hemolysis noted. Ordering Provider: LINDA LAYNE SAY Report Released Date/Time: Feb 22, 2024 10:20 AM Reporting Lab: [facility] [facility] [address] Performing Lab: [facility] [id number] [place] [address] BASIC METABOLIC PANEL CALCIUM [MASS/VOLUM E] IN SERUM OR PLASMA 9.5 mg/dL 8.4 - 10.4 02/24 Specimen Type: PLASMA Comment: No hemolysis noted. Ordering Provider: LINDA LAYNE SAY Report Released Date/Time: Feb 22, 2024 10:20 AM Reporting Lab: [facility] [facility] [address] Performing Lab: [facility] [id number] [place] [address] BASIC METABOLIC PANEL GLOMERULAR FILTRATION RATE/1.73 SQ M.PREDICTED [VOLUME RATE/AREA] IN SERUM, PLASMA OR BLOOD BY CREATININE- BASED FORMULA (CKD-EPI 2020) 89.92 60 02/24 Specimen Type: PLASMA Comment: No hemolysis noted. Ordering Provider: LINDA LAYNE SAY Report Released Date/Time: Feb 22, 2024 10:20 AM Reporting Lab: [facility] [facility] [address] Performing Lab: [facility] [id number] [place] [address] Vital Signs Combined list of inpatient and outpatient Vital Signs from Department of Defense and Veterans Affairs, ranging from 12 months to all on record, depending upon the facility. Vital Sign Value Date Comments Source SYSTOLIC BLOOD PRESSURE 177 02/22/2024 09:40:34 [facility] DIASTOLIC BLOOD PRESSURE 76 02/22/2024 09:40:34 [facility] PULSE OXIMETRY 96 02/22/2024 09:40:34 [facility] WEIGHT 162 02/22/2024 09:40:34 [facility] BMI 25 kg/m2 02/22/2024 09:40:34 [facility] PAIN 0 02/22/2024 09:40:34 [facility] HEIGHT 68 02/22/2024 09:40:34 [facility] Torito [facility] TEMPERATURE 98.2 02/22/2024 09:40:34 [facility] PULSE 68 02/22/2024 09:40:34 [facility] Torito [facility] RESPIRATION 20 02/22/2024 09:40:34 [facility] SYSTOLIC BLOOD PRESSURE 173 02/19/2024 10:00:34 [facility] DIASTOLIC BLOOD PRESSURE 75 02/19/2024 10:00:34 [facility] PULSE OXIMETRY 95 02/19/2024 10:00:34 Fe [facility] WEIGHT 160.8 02/19/2024 10:00:34 [facility] BMI 25 kg/m2 02/19/2024 10:00:34 [facility] HEIGHT 68 02/19/2024 10:00:34 [facility] TEMPERATURE 97.8 02/19/2024 10:00:34 [facility] PULSE 58 02/19/2024 10:00:34 [facility] SYSTOLIC BLOOD PRESSURE 126 11/23/2023 08:38:53 [facility] DIASTOLIC BLOOD PRESSURE 73 11/23/2023 08:38:53 [facility] PULSE OXIMETRY 95 11/23/2023 08:38:53 S Fe [facility] WEIGHT 155.4 11/23/2023 08:38:53 [facility] BMI 23 kg/m2 11/23/2023 08:38:53 [facility] PAIN 0 11/23/2023 08:38:53 [facility] HEIGHT 68.5 11/23/2023 08:38:53 [facility] TEMPERATURE 98.2 11/23/2023 08:38:53 [facility] PULSE 64 11/23/2023 08:38:53 [facility] RESPIRATION 18 11/23/2023 08:38:53 [facility] Encounters Combined list of: 1) Encounters from Department of [facility] Affairs facilities going backup to the last 18 months, not all [place] inpatient encounters are included; 2) Encounters from the Department of [facility] facilities going backup to 280 months. 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 Outpatient Encounter [id number] 10/25 [facility] Outpatient Encounter [id number] 11/20 [facility] OFFICE O/P NEW MOD 45 MIN [id number] Diagnos is: ICD-10- CM F32.A Depress ion, unspeci KATRIN Waller DSAY 11/22 [facility] Outpatient Encounter [id number] KATRIN LAYNE DSAY 12/13 [facility] COMPRE OPH EXAM NEW PT 1/> [id number] Diagnos is: ICD-10- CM H25.13 Age-rel ated nuclear catarac t, bilater al DENG [place] Ara 01/01 [facility] HEARING AID EXAM BOTH EARS [id number] Diagnos is: ICD-10- CM H90.3 Sensori neural hearing loss, justin Nagel VAN MYERS Chato 01/27 [facility] OFFICE O/P EST HI 40 MIN [id number] Diagnos is: ICD-10- CM Z77.29 Contact with and exposur e to other hazardo us substan ROSALIA Edge HIA I 02/18 [facility] Outpatient Encounter [id number] 02/20 [facility] OFFICE O/P EST MOD 30 MIN [id number] Diagnos is: ICD-10- CM R20.2 Paresth esia of KATRIN Salgado 02/21 [facility] HEARING SERVICE [id number] Diagnos is: ICD-10- CM H90.3 Sensori neural hearing loss, CRISTOPHER Portillo 02/24 [facility] Outpatient Encounter [id number] 03/25 [facility] Outpatient Encounter [id number] 03/31 [facility] Outpatient Encounter [id number] 05/05 [facility] Outpatient Encounter [id number] 05/12 [facility] Outpatient Encounter [id number] HARRYDEREJEMARIA E GILL T 05/12 [facility] SYNCH AUDIO-ONLY EST MOD 30 [id number] Diagnos is: ICD-10- CM E87.1 Hypo-os molalit y and hyponat KATRIN Perez DSAY 05/15 [facility] Outpatient Encounter [id number] 05/20 [facility] Social History Combined list of available smoking, tobacco, and other social history from Department of Defense and Veterans Affairs facilities. Social History Type Response Date Comment Sourc e Tobacco smoking status NHIS VA-TOBACCO USER EVERY DAY 11/23/2023 [facility] History of tobacco use VA-TOBACCO USE WI 30 MIN OF WAKEUP 11/23/2023 [facility] Plan of Care List of future care activities from Department of [facility] Affairs facilities. Additional future care activities may be listed in the Assessment and Plan section. Date/Time Care Activity Care Activity Detail Facili ty 08/22/2024 AMBULATORY - MEDICINE AMBULATORY - MEDICI NE [facility]
--- OUTSIDE RECORDS SUMMARY | 2024-05-23 15:10 | XMS_ITS | Clinical Summary ---
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 Gender Identity Not on file Sexual Orientation Not on file Plan of Treatment Health Maintenance Due Date Last Done Comments Hepatitis C Virus (HCV) Screening 1950 Colonoscopy 1994 Colorectal Cancer Screening 1994 Cologuard 10/28/1999 Immunochemical Fecal Occult Blood 10/28/1999 Zoster Immunization (1 of 2) 10/28/1999 Pneumococcal Immunization (50+ years) (2 of 2 - PPSV23) 05/11/2016 05/12/2015 Influenza Immunization (#1) 10/14/202312/13, 11/20/2019, 11/09/2015, Additional history exists SARS-COV-2 Immunization ( season) 2023 02/01/2021, 04/16/2020 Respiratory Syncytial Virus (RSV) Immunization (Adult) (1 - 1-dose 75+ series) 2024 DTaP/Tdap/Td Immunization Discontinued 10/16/2018 TdaP Immunization Completed 10/16/2018 Hepatitis B Immunization Aged Out No longer eligible based on patient's age to complete this topic Meningococcal Immunization (ACWY) Aged Out No longer eligible based on patient's age to complete this topic Rotavirus Immunization Aged Out No lo nger eligible based on patient's age to complete this topic
== END 2024-05-23 15:05 | disposition home or self-care (01) ==
LOC: ANHCARD 15:08
PROVIDERS: PCP Family Medicine; Visit Provider Nurse Anesthetist, Certified Registered
DX: Z01.818 Encounter for other preprocedural examination (principal); I10 Essential (primary) hypertension
CPT/HCPCS: 93005

== ENCOUNTER 2024-09-08 14:35 | Outpatient (CLI) | payer MEDICARE, OTHER, SELFPAY ==
--- NOTE | ~2024-09-08 | CT_ITS ---
CT Scan of the Chest without Contrast: Clinical Indication: Lung cancer screening, nicotine dependence Technique: Contiguous sections were acquired throughout the chest without intravenous contrast. Dose reduction technique was used on this scan by utilizing automated exposure control and iterative recon struction technique. The dose-length product (DLP) was 97.12 mGy-cm. Comparison: 05/29/2023 Findings: There is no evidence of any significant mediastinal, hilar or axillary lymphadenopathy. The mediastin al soft tissues appear normal. There is no evidence of pleural or pericardial effusion. 1 cm right middle lobe nodule is increased from prior exam (axial image 104). There is advanced emphy sema in the upper lobes in particular. Images through the upper abdomen reveal no abnormalities. Impression: Lung RADS 4B: Suspicious. Increasing 1 cm right middle lobe nodule. Recommend PET/CT, tissue sampling , or possibly one month follow-up CT. Reviewed, dictated and finalized at [facility]. Impression: Lung RADS 4B: Suspicious. Increasing 1 cm right middle lobe nodule. Recommend P ET/CT, tissue sampling, or possibly one month follow-up CT.
--- OUTSIDE RECORDS SUMMARY | 2024-09-08 14:38 | XMS_ITS | Clinical Summary ---
Author Organization [facility] [employer] Address [address] [place] [address] Care Team Providers Care Repairer Finished Metal Name Role Phone Unavailable Primary Care Provider Unavailabl e Source Comments [facility] [employer],non-owned Affiliates and Associated Physician Practices is amultiple site organization consisting of ambulatory clinics and hospital sitesin [place], [place], [place] and [place]. This disclosure is being madepursuant to the Care Everywhere program and may not contain all information available regarding this patient. Last updated 17.[facility] [employer] Social History Tobacco Use Types Packs/Day Years Used Date Smoking Tobacco: Never Assessed Sex and Gender Information Value Date Recorded Sex Assigned at Not on file Legal Sex Male 1:44 PM CDT Gender Identity Not on file [...] season) 2023 DEPRESSION SCREENING 02/13/2024 INFLUENZA VACCINE (#1) 2024 Respiratory Syncytial Virus (RSV) Vaccine Pt: [...] patient's age to complete this topic Insurance MEDICARE
--- OUTSIDE RECORDS SUMMARY | 2024-09-08 14:38 | XMS_ITS | Clinical Summary ---
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 Gender Identity Not on file Sexual Orientation Not on file Plan of Treatment Health Maintenance Due Date Last Done Comments Hepatitis C Virus (HCV) Screening 1950 Cologuard 1994 Colonoscopy 1994 Colorectal Cancer Screening 1994 Immunochemical Fecal Occult Blood 1994 Zoster Immunization (1 of 2) 10/28/1999 Pneumococcal Immunization (50+ years) (2 of 2 - PPSV23) 05/11/2016 05/12/2015 SARS-COV-2 Immunization ( season) 2023 02/01/2021, 04/16/2020 Influenza Immunization (#1) 10/13/202412/13, 11/20/2019, 11/09/2015, Additional history exists Respiratory Syncytial Virus (RSV) Immunization (Adult) (1 - 1-dose 75+ series) 2024 DTaP/Tdap/Td Immunization Discontinued 10/16/2018 TdaP Immunization Completed 10/16/2018 Hepatitis B Immunization Aged Out No longer eligible based on patient's age to complete this topic Human Papillomavirus (HPV) Immunization Aged Out No longer eligible based on patient's age to complete this topic Meningococcal Immunization (ACWY) Aged Out No longer eligible based on patient's age to complete this topic Rotavirus Immunization Aged Out No lo nger eligible based on patient's age to complete this topic
--- OUTSIDE RECORDS SUMMARY | 2024-09-08 14:38 | XMS_ITS | Referral Summary ---
Author Organization [facility] Address [address] [place] [address] Care Team Providers Care Production Cloth Cutter Name Role Phone Goyo Dinero MD Primary Care Provider [phone] Allergies No known active allergies Medications umeclidinium-carolann anteroL (ANORO ELLIPTA) 62.5-25 mcg/actuation blister with device Inhale 1 puff daily Active aspirin 81 mg enteric coated tablet Take 1 tablet (81 mg total) by mouth daily 30 tablet 11 4 Active rosuvastatin (CRESTOR) 5 mg tablet 4 [...] on file Legal Sex Male 4:01 PM ENROBER Gender Identity Not on file Sexual Orientation Not on file Last Filed Vital Signs Vital Sign Reading Time Taken Comments Blood Pressure 138/70 04/02/2024 12:48 PM ENROBER Pulse 70 04/02/2024 12:48 PM ENROBER Temperature - - Respiratory Rate - - Oxygen Saturation 95% 04/02/2024 12:48 PM ENROBER Inhaled Oxygen Concentration - - Weight 75.8 kg (167 lb) 04/02/2024 12:48 PM ENROBER Height 172.7 cm (5' 8) 04/02/2024 12:48 PM ENROBER Body Mass Index 25.39 04/02/2024 12:48 PM ENROBER Plan of Treatment [place] [address] [facility] [place] [address] MEDICARE FOR LIFE Care Teams Production Cloth Cutter Relationship Specialty Start Date End Date Goyo Dinero MD [address] [place] [address] PCP - General Family Medicine 12/11/19
--- OUTSIDE RECORDS SUMMARY | 2024-09-08 14:38 | XMS_ITS | Encounter Summary ---
Author Organization [facility] Address [address] [place] [address] Care Team Providers Care Operations Analyst Name Role Phone Unavailable Primary Care Provider Unavailabl e Encounter Details Date Type Department Care Team (Late st Contact Info) Description 11/27/2023 Lab Requisition [facility] - DermPath Lab [address] [facility] [place] [address] Natalia Cowan DO [address] [facility] [address] [place] [address] Social History Tobacco Use Types Packs/Day Years [...] AM CDT) Case Report Dermatopathology Report Case: [id number] Authorizing Provider: Natalia Cowan DO Collected: 11/27/2023 10:58 AM Ordering Location: [facility] - Received: 11/28/2023 06:18 AM DermPath Lab Pathologist: Nataliya Osuna MD Specimen: Skin, right cheek 1:22 PM CDT DERMATOPATHOLOGY LABORATORY Final Diagnosis Specimen A. SKIN, right cheek: BASAL CELL CARCINOMA, PIGMENTED (C44.319) 1:22 PM CDT DERMATOPATHOLOGY LABORATORY at 1322 CDT Clinical History SK vs lentigo r/o MM 1:22 PM CDT DERMATOPATHOLOGY LABORATORY Gross Description Specimen A: Received is one formalin filled container labeled with the patient's name and designated right cheek. The specimen consists of a shave biopsy measuring 3x3x1 mm. Jar 0. 1:22 PM CDT DERMATOPATHOLOGY LABORATORY Microscopic Description Specimen A. SKIN, right cheek: There are aggregates of basaloid cells with a high nuclear to cytoplasmic ratio and peripheral palisading. There is abundant melanin. 1:22 PM CDT DERMATOPATHOLOGY LABORATORY Disclaimer An external and internal positive and negative controls are appropriate for the histochemical, immunohistochemical and immunofluorescence stain(s) in this case (if any), except where stated explicitly. The performance characteristics of the stain(s) cited in this report were developed and its performance characteristic determined by the Dermatopathology Laboratory at [facility], directed by Dr. Zhanna Osuna. These tests need not be, and therefore are not, approved by the [place] Food and Drug Administration. The tests are used for clinical purposes. Billing Codes Specimen Charges Stain Charges 56851 1 1:22 PM CDT DERMATOPATHOLOGY LABORATORY Embedded Images 1:22 PM CDT DERMATOPATHOLOGY LABORATORY Pathology/Cytolo gy TISSUE SPECIMEN FROM SKIN / Unknown 11/27/2023 10:58 AM CDT 11/28/2023 6:18 AM CDT us Natalia oCwan DO LAB - PATHOLOGY/CYTOLOGY ORDERABLES Final Result DERMATOPATHOLOGY LABORATORY [facility] - Department of Dermatology [address] [place] [address], [facility] [phone] documented in this encounter Visit Diagnoses Not on filedocumented in this encounter
--- OUTSIDE RECORDS SUMMARY | 2024-09-08 14:38 | XMS_ITS | Continuity of Care Document ---
Author Name [facility] Organization [facility] Care Team Providers Care Diplomatic Interpreter Name Role Phone [facility] Unavailable Unavailable Problems Combined list of problems from Department of Defense and [facility] Affairs facilities. It does not include entries that were removed or entered in error. Problem Status Onset Date Problem Type Date of Resolution Comments Source Basal cell carcinoma of cheek Active Condition [facility] Depression Active Condition [facility] Dyspnea Active Condition [facility] Exposure to potentially hazardous substance Active Condition Feb 19, 2024 Entered By: CARMELA ALVAREZ I Comment: Airborne Hazard and Open Burn Pit/[place] War exposures [facility] Hyperlipidemia Active Condition [facility] Hypertension Active Condition [facility] Insomnia Active Condition [facility] Sensorineural hearing loss of bilateral ears Active Condition [facility] Sleep apnea Active Condition [facility] Tobacco use Active Condition [facility] Diagnosis: ICD-10-CM 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 [facility] Diagnosis: ICD-10-CM I10 Essential (primary) hypertension Active Diagnosis [facility] Diagnosis: ICD-10-CM Z60.0 Problems of adjustment to life-cycle transitions Active Diagnosis [facility] Diagnosis: ICD-10-CM G62.9 Polyneuropathy, unspecified Active Diagnosis [facility] Diagnosis: ICD-10-CM E87.1 Hypo-osmolality and hyponatremia Active Diagnosis [facility] Diagnosis: ICD-10-CM H90.3 Sensorineural hearing loss, bilateral Active Diagnosis [facility] Diagnosis: ICD-10-CM R20.2 Paresthesia of skin Active Diagnosis [facility] Diagnosis: ICD-10-CM Z77.29 Contact with and exposure to other hazardous substances Active Diagnosis [facility] Diagnosis: ICD-10-CM H25.13 Age-related nuclear cataract, bilateral Active Diagnosis [facility] Diagnosis: ICD-10-CM F32.A Depression, unspecified Active Diagnosis [facility] Diagnosis: ICD-10-CM Z71.9 Counseling, unspecified Active Diagnosis [facility] Medications Combined list of outpatient medications from Department of [facility] and [facility] facilities.Medications provided include 1) outpatient medications from the last 15 months, and 2) patient-reported medications. Medication Details Route Status Patient Instructions Prescription Expires Prescription Number Last Dispense Date Ordering Provider Order Date Order Qty Source ESCITALOPRA M OXALATE (ESCITALOPR AM OXALATE), 10 MG, TABLET, ORAL, TORRENT PHARMAC, 1000 ea. BOTTLE Active [id number] 2023 30 Pharmac y Data Transac tion Service Facilit y ESCITALOPRA M OXALATE (ESCITALOPR AM OXALATE), 10 MG, TABLET, ORAL, TORRENT PHARMAC, 1000 ea. BOTTLE Active [id number] 2023 30 Pharmac y Data Transac tion Service Facilit y NICOTINE 14MG/24HRS PATCH APPLY 1 PATCH TO SKIN SITE EVERY MORNING REMOVE OLD PATCH BEFORE APPLYING NEW ONE. ROTATE SITES. DO NOT SMOKE WHILE WEARING PATCH. TRANSD ERMAL ACTIVE 02/22/2025 [id number] JOSEY LAYNE NDSACharlotte 2024 28 [facility] VARENICLINE TAB STARTER PACK,53 TAKE 1 TABLET BY MOUTH DIRECTED FOR TOBACCO CESSATIO N START TAKING 1 WEEK BEFORE YOUR QUIT DATE. YOU MAY CONTACT [phone] FOR ADDITION AL SUPPORT. CALL YOUR PROVIDER 14 DAYS AFTER BEGINNIN G THERAPY TO REPORT PROGRESS AND TO REQUEST YOUR NEXT FILL. ORAL 12/23/2023 [id number] 4 JOSEY LAYNE NDSAY 2023 1 [facility] Results Combined list of recent chemistry, hematology and other laboratory results from Department of [facility] and [facility], ranging from 15 months [...] of the results. Ordering Provider: LINDA LAYNE SAY Report Released Date/Time: Feb 22, 2024 10:20 AM Reporting Lab: [facility] [address] [facility] [address] Performing Lab: [facility] [address] [facility] B12 COBALAMIN (VITAMIN B12) [MASS/VOLUM E] IN SERUM OR PLASMA 603 pg/mL 213 - 816 02/24 Specimen Type: SERUM No comment entered. Ordering Provider: LINDA LAYNE SAY Report Released Date/Time: Feb 22, 2024 10:20 AM Reporting Lab: [facility] [facility] [address] Performing Lab: [facility] [id number] [place] [address] DIVISION FOLATE (STL-MA) FOLATE [MASS/VOLUM E] IN SERUM OR PLASMA 12.3 ng/mL 7 - 20 02/24 Specimen Type: SERUM No comment entered. Ordering Provider: LINDA LAYNE SAY Report Released Date/Time: Feb 22, 2024 10:20 AM Reporting Lab: [facility] [address] Performing Lab: [facility] [address] [place] [address] DIVISION BASIC METABOLIC PANEL CREATININE [MASS/VOLUM E] IN SERUM OR PLASMA 0.89 mg/dL 0.70 - 1.30 02/24 Specimen Type: PLASMA Comment: No hemolysis noted. Ordering Provider: LINDA LAYNE SAY Report Released Date/Time: Feb 22, 2024 10:20 AM Reporting Lab: [facility] [address] Performing Lab: [facility] [address] [facility] BASIC METABOLIC PANEL UREA NITROGEN [MASS/VOLUM E] IN SERUM OR PLASMA 16.0 mg/dL 9.0 - 25.0 02/24 Specimen Type: PLASMA Comment: No hemolysis noted. Ordering Provider: LINDA LAYNE SAY Report Released Date/Time: Feb 22, 2024 10:20 AM Reporting Lab: [facility] [address] Performing Lab: [facility] [id number] [place] [address] BASIC METABOLIC PANEL GLUCOSE [MASS/VOLUM E] IN SERUM OR PLASMA 112 mg/dL 72 - 99 02/24 H Specimen Type: PLASMA Comment: No hemolysis noted. Ordering Provider: LINDA LAYNE SAY Report Released Date/Time: Feb 22, 2024 10:20 AM Reporting Lab: [facility] [address] Performing Lab: [facility] [address] BASIC METABOLIC PANEL SODIUM [MOLES/VOLU ME] IN SERUM OR PLASMA 134 meq/L 136 - 145 02/24 L Specimen Type: PLASMA Comment: No hemolysis noted. Ordering Provider: LINDA LAYNE SAY Report Released Date/Time: Feb 22, 2024 10:20 AM Reporting Lab: [facility] [address] Performing Lab: [facility] [phone] BASIC METABOLIC PANEL POTASSIUM [MOLES/VOLU ME] IN SERUM OR PLASMA 4.7 meq/L 3.5 - 5.0 02/24 Specimen Type: PLASMA Comment: No hemolysis noted. Ordering Provider: LINDA LAYNE SAY Report Released Date/Time: Feb 22, 2024 10:20 AM Reporting Lab: [facility] [address] Performing Lab: [facility] [phone] BASIC METABOLIC PANEL CHLORIDE [MOLES/VOLU ME] IN SERUM OR PLASMA 101 meq/L 98 - 107 02/24 Specimen Type: PLASMA Comment: No hemolysis noted. Ordering Provider: LINDA LAYNE SAY Report Released Date/Time: Feb 22, 2024 10:20 AM Reporting Lab: [facility] [place] [address] Performing Lab: [facility] [address] BASIC METABOLIC PANEL CARBON DIOXIDE, TOTAL [MOLES/VOLU ME] IN SERUM OR PLASMA 25 meq/L 22 - 31 02/24 Specimen Type: PLASMA Comment: No hemolysis noted. Ordering Provider: LINDA LAYNE SAY Report Released Date/Time: Feb 22, 2024 10:20 AM Reporting Lab: [facility] [place] [address] Performing Lab: [facility] BASIC METABOLIC PANEL CALCIUM [MASS/VOLUM E] IN SERUM OR PLASMA 9.5 mg/dL 8.4 - 10.4 02/24 Specimen Type: PLASMA Comment: No hemolysis noted. Ordering Provider: LINDA LAYNE SAY Report Released Date/Time: Feb 22, 2024 10:20 AM Reporting Lab: [facility] [place] [address] Performing Lab: [facility] BASIC METABOLIC PANEL GLOMERULAR FILTRATION RATE/1.73 SQ M.PREDICTED [VOLUME RATE/AREA] IN SERUM, PLASMA OR BLOOD BY CREATININE- BASED FORMULA (CKD-EPI 2020) 89.92 60 02/24 Specimen Type: PLASMA Comment: No hemolysis noted. Ordering Provider: LINDA LAYNE Report Released Date/Time: Feb 22, 2024 10:20 AM Reporting Lab: [facility] [address] Performing Lab: [facility] [address] [facility] Vital Signs Combined list of inpatient and outpatient Vital Signs from Department of Defense and Veterans Affairs, ranging from 12 months to all on record, depending upon the facility. Vital Sign Value Date Comments Source SYSTOLIC BLOOD PRESSURE 143 08/22/2024 10:31:03 [facility] DIASTOLIC BLOOD PRESSURE 90 08/22/2024 10:31:03 [facility] PULSE OXIMETRY 95 % 08/22/2024 10:31:03 [facility] WEIGHT 166 08/22/2024 10:31:03 [facility] BMI 25 kg/m2 08/22/2024 10:31:03 [facility] PAIN 0 08/22/2024 10:31:03 [facility] HEIGHT 68 08/22/2024 10:31:03 [facility] TEMPERATURE 99 08/22/2024 10:31:03 [facility] PULSE 66 08/22/2024 10:31:03 [facility] RESPIRATION 16 08/22/2024 10:31:03 [facility] SYSTOLIC BLOOD PRESSURE 177 02/22/2024 09:40:34 [facility] DIASTOLIC BLOOD PRESSURE 76 02/22/2024 09:40:34 [facility] PULSE OXIMETRY 96 02/22/2024 09:40:34 [facility] WEIGHT 162 02/22/2024 09:40:34 [facility] BMI 25 kg/m2 02/22/2024 09:40:34 [facility] PAIN 0 02/22/2024 09:40:34 [facility] HEIGHT 68 02/22/2024 09:40:34 [facility] TEMPERATURE 98.2 02/22/2024 09:40:34 [facility] PULSE 68 02/22/2024 09:40:34 [facility] RESPIRATION 20 02/22/2024 09:40:34 [facility] SYSTOLIC BLOOD PRESSURE 173 02/19/2024 10:00:34 [facility] DIASTOLIC BLOOD PRESSURE 75 02/19/2024 10:00:34 [facility] PULSE OXIMETRY 95 02/19/2024 10:00:34 [facility] WEIGHT 160.8 02/19/2024 10:00:34 [facility] BMI 25 kg/m2 02/19/2024 10:00:34 [facility] HEIGHT 68 02/19/2024 10:00:34 [facility] TEMPERATURE 97.8 02/19/2024 10:00:34 [facility] PULSE 58 02/19/2024 10:00:34 [facility] SYSTOLIC BLOOD PRESSURE 126 11/23/2023 08:38:53 [facility] DIASTOLIC BLOOD PRESSURE 73 11/23/2023 08:38:53 [facility] PULSE OXIMETRY 95 11/23/2023 08:38:53 [facility] WEIGHT 155.4 11/23/2023 08:38:53 [facility] BMI 23 kg/m2 11/23/2023 08:38:53 [facility] PAIN 0 11/23/2023 08:38:53 [facility] HEIGHT 68.5 11/23/2023 08:38:53 [facility] TEMPERATURE 98.2 11/23/2023 08:38:53 [facility] PULSE 64 11/23/2023 08:38:53 [facility] RESPIRATION 18 11/23/2023 08:38:53 [facility] Encounters Combined list of: 1) Encounters from Department of [facility] Affairs facilities going backup to the last 18 months, not all CT inpatient encounters are included; 2) Encounters from the Department of [facility] facilities going backup to 280 months. 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 FADI Manjarrez R 10/24 [facility] Outpatient Encounter [id number] 10/25 [facility] Outpatient Encounter [id number] 11/20 [facility] OFFICE O/P NEW MOD 45 MIN [id number] Diagnos is: ICD-10- CM F32.A Depress ion, unspeci KATRIN Waller DSAY 11/22 [facility] Outpatient Encounter [id number] KATRIN LAYNE DSAY 12/13 [facility] COMPRE OPH EXAM NEW PT 1/> [id number] Diagnos is: ICD-10- CM H25.13 Age-rel ated nuclear catarac t, bilater al DENG SANTA R 01/01 [facility] HEARING AID EXAM BOTH EARS [id number] Diagnos is: ICD-10- CM H90.3 Sensori neural hearing loss, VAN Gaming 01/27 [facility] OFFICE O/P EST HI 40 MIN [id number] Diagnos is: ICD-10- CM Z77.29 Contact with and exposur e to other hazardo us substan ROSALIA Edge HIA I 02/18 [facility] Outpatient Encounter [id number] 02/20 [facility] OFFICE O/P EST MOD 30 MIN [id number] Diagnos is: ICD-10- CM R20.2 Paresth esia of skin KATRIN LAYNE 02/21 [facility] HEARING SERVICE [id number] Diagnos is: ICD-10- CM H90.3 Sensori neural hearing loss, jusitn CRISTOPHER Chapa 02/24 [facility] Outpatient Encounter [id number] 03/25 [facility] Outpatient Encounter [id number] 03/31 [facility] Outpatient Encounter [id number] 05/05 [facility] Outpatient Encounter [id number] 05/12 [facility] Outpatient Encounter [id number] MARIA E EARL T 05/12 [facility] SYNCH AUDIO-ONLY EST MOD 30 [id number] Diagnos is: ICD-10- CM E87.1 Hypo-os molalit y and hyponat KATRIN Perez 05/15 [facility] Outpatient Encounter [id number] 05/20 [facility] NRV CNDJ TEST 7-8 STUDIES [id number] Diagnos is: ICD-10- CM G62.9 Polyneu ropathy , unspeci JAKE Cochran 06/16 [facility] Outpatient Encounter [id number] 06/16 [facility] Outpatient Encounter [id number] 07/17 [facility] Outpatient Encounter [id number] 07/18 [facility] PH1 ASSMT&MGMT NQHP 5-10 [id number] Diagnos is: ICD-10- CM Z60.0 Problem s of adjustm ent to life-cy christelle transit ions Arcadio MARSHALL IMEE LENA 07/23 [facility] Outpatient Encounter [id number] D 08/12 [facility] OFFICE O/P EST MOD 30 MIN [id number] Diagnos is: ICD-10- CM I10 Essenti al (primar y) hyperte nsKATRIN Chow DSAY 08/22 [facility] OFF/OP CONSLTJ NEW/EST HI 55 [id number] Diagnos is: ICD-10- CM G60.3 Idiopat hic progres sive neuropa thy Chato NAIR UAN 08/[facility] Social History Combined list of available smoking, tobacco, and other social history from Department of Defense and Veterans Affairs facilities. Social History Type Response Date Comment Sourc e Tobacco smoking status NHIS VA-TOBACCO USER EVERY DAY 11/23/2023 [facility] History of tobacco use VA-TOBACCO USE WI 30 MIN OF WAKEUP 11/23/2023 [facility] This section is an empty social history section. DoD Plan of Care List of future care activities from Department of Veterans Affairs facilities. Additional future care activities may be listed in the Assessment and Plan section. Date/Time Care Activity Care Activity Detail Facili ty 01/02/2025 AMBULATORY - SURGERY AMBULATORY - SURGERY [facility]
--- OUTSIDE RECORDS SUMMARY | 2024-09-08 14:38 | XMS_ITS | Clinical Summary ---
Author Organization [facility] Address [id number] [place] [address] Care Team Providers Care Manufacturing Test Engineer Name Role Phone Goyo Dinero MD Primary Care Provider [phone] Allergies No known active allergies Medications umeclidinium-carolann [...] Active Active Problems No known active problems Surgical History Surgery Date Site/Laterality Comments HEMORRHOID SURGERY Medical History Medical History Date Comments COPD (chronic obstructive pulmonary disease) (HC C) Sleep apnea Hypertension Atherosclerosis of aorta Atherosclerotic heart diseas e of [place] coronary artery without angina pectoris Family History [...] on file Legal Sex Male 4: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 Gender Identity Not on file Sexual Orientation Not on file Obstetrics History Last Filed Vital Signs Vital Sign Reading Time Taken Comments Blood Pressure 138/70 04/02/2024 12:48 PM FULL TIME STAFF INTERPRETER Pulse 70 04/02/2024 12:48 PM FULL TIME STAFF INTERPRETER Temperature - - Respiratory Rate - - Oxygen Saturation 95% 04/02/2024 12:48 PM FULL TIME STAFF INTERPRETER Inhaled Oxygen Concentration - - Weight 75.8 kg (167 lb) 04/02/2024 12:48 PM FULL TIME STAFF INTERPRETER Height 172.7 cm (5' 8) 04/02/2024 12:48 PM FULL TIME STAFF INTERPRETER Body Mass Index 25.39 04/02/2024 12:48 PM FULL TIME STAFF INTERPRETER Plan of Treatment Health Maintenance Due Date Last Done Comments Colon Cancer Screening-Colonoscopy 1950 Depression Screening 1949 Fall Risk Assessment 1950 Hepatitis C Screening 1950 Hepatitis B Screening 10/28/1967 Zoster Vaccine (1 of 2) 10/28/1999 Abdominal Aortic Aneurysm (A AA) Screen 2014 Well Visit 65+ 2014 Pneumococcal vaccine 65+ (2 of 2 - PPSV23) 07/07/2015 05/12/2015 Influenza Vaccine (#1) 2024 0, 11/09/2015, 11/24/2013 DTaP/Tdap/Td Vaccine (2 - Td or Tdap) 10/16/202805/2018 Insurance MEDICARE FOR LIFE MEDICARE FOR LIFE Care Teams Manufacturing Test Engineer Relationship Specialty Start Date End Date Goyo Dinero MD [address] [place] [id number] PCP - General Family Medicine 12/11/19
--- OUTSIDE RECORDS SUMMARY | 2024-09-08 14:38 | XMS_ITS | Data Portability ---
Author Organization [place] - [facility], Main Office Address [address] [place] [address] Care Team Providers Care Junior Web Developer Name Role Phone ANTONINO WELLS Primary Care [...] bone healing and increased risk of infection. Not available 05/21/2024 16:11:43 06/02/2024 06/02/2024 73-year-old patient presents today for 1st postop follow-up after left clavicle ORIF on 05/27/[address] Marlow. He was scheduled to follow-up this Sunday but states that the end of his incision slightly opened and he wanted to make sure it was okay. He is no longer taking medications for pain, 2/10 pain. He is wearing the sling. He denies any certain movement or injury that caused incision to open. He states that he made a Band-Aid into a Steri-Strip and closed the open area. He has not had any issues since. Physical exam: Dressing was removed. Area that patient states was previously open is the most medial edge of the incision. It is closed together with a Band-Aid. Band-Aid was removed and incision stayed close. No erythema, edema, bleeding or drainage. Monocryl suture tails still visible and held down with steri strips on both ends of the incision. Sensation intact. New Steri-Strips were applied to the medial end of the incision. We discussed incisional care and when to call the office if there are any new changes. We will see him back on Sunday for another incision check, he will call before then with any issues. He is in agreement with this plan. Not available 06/02/2024 14:56:21 06/06/2024 06/06/2024 73-year-old patient presents today for postop follow-up after left clavicle ORIF on 05/27/[address] Marlow. Today is his scheduled 1st follow-up but we saw him on Sunday for a incision check. We reinforced with steri strips and gave him steris to reinforce at home if needed. He states that the medial end of his incision re-opened and is bleeding. He states the lateral end started to bleed as well this morning but it has since scabbed over and stopped. He is no longer taking medications for pain, 1/10 pain. He is wearing the sling. Physical exam: Dressing was removed. Medial end of incision has 4mm opening, bleeding. No exposed hardware. No erythema, purulent drainage, edema. No pain with palpitation. Lateral end of incision has scab formation. No bleeding. Suture tails were trimmed. New Steri-Strips were applied to the medial and lateral end of the incision. ABD applied with tape to apply pressure. We provided him with dressings to change at home. We will do a week of Keflex. We discussed incisional care and when to call the office if there are any new changes. We will see him back on Sunday for another incision check, he will call before then with any issues. He is in agreement with this plan. Not available 06/06/2024 10:31:54 06/11/2024 06/11/2024 73-year-old male presents for follow-up of his left clavicle. He has a history of ORIF on 05/27/2024. He has been wearing the sling. He is doing better, having minimal pain. He has no pain with gentle motion of the shoulder. Incision is clean dry intact without any signs of infection. He has no tenderness over the surgical site. He has no pain with shoulder range of motion. X-rays were reviewed, demonstrating hardware intact and in place, with reduction of fracture We will continue with the postoperative rehab protocol. Follow up in 4 weeks with repeat x-rays. He is in agreement with the plan. [email or web address] Not available 06/11/2024 22:23:39 07/09/2024 07/09/2024 73-year-old male presents for follow-up of his left clavicle. He has a history of ORIF on 05/27/2024. He is doing well, no pain with motion of the shoulder. Incision is clean dry intact without any signs of infection. He had a small vicryl suture visible in the middle of the incision, this was easily removed. He has no pain over surgical site and along clavicle. He has no pain with shoulder range of motion. X-rays were reviewed, demonstrating hardware intact and in place, with reduction of fracture He is doing well overall, we no longer need to see him back for rechecks unless new issues arise. He is in agreement with this plan. Not available 07/09/2024 10:57:44 Plan of Treatment Reminders Order Date Submit Date Provider Last Modified By Organization Details Last Modified Time Details Appointments None recorded. Lab None recorded. Referral None recorded. Procedures None recorded. Surgeries None recorded. Imaging XR, clavicle 2024 025 [email or web address] [facility] [place], [address], [address], 16:25:57 XR, clavicle 2024 025 [email or web address] [facility] [place], [address], [address], 08:14:47 Medication Orders cephalexin 500 mg capsule 2024 025 [email or web address] [id number], [address] [place] [address], [address], 10:35:40 Patient TargetsNo targets recorded. Patient InstructionsNo instructions recorded. Reason for Referral None Reported. Results Created Date Observation Date Name Description Value Unit Range Abnormal Flag Note LastModifiedBy Organization Detail LastModifiedTime 05/22/1905/19/2024 XR, clavi christelle No observ ation record ed. [email or web address] Not Available 10/2024 11:11:00 06/12/19 XR, clavi christelle No observ ation record ed. [email or web address] [facility] [place] [address] [facility] [address], [address], 06/11/2024 11:13:18 07/10/19 25 XR, clavi christelle No observ ation record ed. [email or web address] [facility] [place] [address], [address], 07/09/2024 10:44:18 Result Notes None recorded. Problems Name Problem SNOMED Code Status Onset Date Resolution Date Notes Provider Name and Address Organization Details Recorded Time Pain of left shoulder joint 890164871695365 09 Active 2024 JOSELITO Cornell null, [place] [facility] 15:09:05 Closed fracture of left clavicle 322147953690872 05 Active 2024 Sally Talavera, WIRE TECHNICIAN [address] [facility], [facility] [address], [place], [address] [facility] [employer] 16:12:08 Problem Notes None recorded. Procedures Surgical History Date Name Laterality Status Provider Name and Address Organization Details Recorded Time procedure on clavicle completed Sidnhu Galarza Arcadio [facility] [employer] [facility] 06/16/2024 16:51:25 Foot Surgery completed Sindhu Galarza Arcadio [facility] [employer] [facility] 05/21/2024 15:07:42 Imaging Results None recorded. Procedure Notes None recorded. Medical Equipment None Reported. Allergies No known drug allergies Medications Name Sig Start Date Stop Date Status Note LastModified by Organization Details LastModified Time hydrocodone 5 mg-acetamino phen 325 mg tablet TAKE 1 TABLET BY MOUTH EVERY 6 HOURS active Not Available Not Available No t Available alprazolam 0.5 mg tablet TAKE 1 TABLET BY MOUTH EVERY DAY AT BEDTIME NEEDED FOR SLEEP active Not Available Not Available No t Available trazodone 100 mg tablet TAKE 1 TO 2 TABLETS BY MOUTH AT BEDTIME ONCE A DAY 05/21 completed Not Available Not Available Not Available cephalexin 500 mg capsule TAKE 1 CAPSULE BY MOUTH EVERY 6 HOURS active Not Available Not Available No t Available triamcinolon e acetonide 0.1 % topical [...] Updated DateTime 05/21/2024 172.72 cm 24.3 kg/m2 52982.78 g 5 Sindhu Galarza EVANGELISTArcadio [facility] [employer] 05/21/2024 15:04:32 Date Recorded Body height Body mass index (BMI) Body weight Provider Name and Address Organization Details Last Updated DateTime 06/02/2024 172.72 cm 24.3 kg/m2 60757.78 g Sindhu Galarza EVANGELISTArcadio [facility] [employer] [facility] 06/02/2024 11:26:09 Date Recorded Body height Body mass index (BMI) Body weight Pain severity - 0-10 verbal numeric rating [Score] - Reported Provider Name and Address Organization Details Last Updated DateTime 06/06/2024 172.72 cm 24.3 kg/m2 44395.78 g 1 Sindhu Galarza EVANGELISTArcadio [facility] [employer] [facility] 06/06/2024 10:05:12 Date Recorded Body height Body mass index (BMI) Body weight Provider Name and Address Organization Details Last Updated DateTime 06/11/2024 172.72 cm 24.3 kg/m2 72869.78 g Laura Hernandez CNA [facility] [employer] 06/11/2024 10:10:18 Date Recorded Body height Body mass index (BMI) Body weight Pain severity - 0-10 verbal numeric rating [Score] - Reported Provider Name and Address Organization Details Last Updated DateTime 07/09/2024 172.72 cm 24.3 kg/m2 83623.78 g 0 JOSELITO Cornell [facility] [employer] 07/09/2024 10:43:11 Social History Question Answer Notes LastModified by Organizat ion Details LastModified Time Tobacco Smoking Status Current Every Day Smoker JOSELITO Cornell [facility] [employer] 05/21/2024 15:07:33 What Was The Date Of Your Most Recent Tobacco Screening? 05/21/2024 [email or web address] Information not available 05/21/2024 Sex: Unknown Functional Status Question Answer Note LastModified by Organization D etails LastModified Time What is your level of alcohol consumption? None [email or web address] Information not available 05/21/2024 Mental Status None recorded. Family History Nothing Reported. Medical History Condition Response COPD Y HEART DISEASE/HEART PROBLEMS Y HYPERTENSION Y Past Encounters Encounter ID Performer Location Encounter Start Date Encounter Closed Date Diagnosis/Indication Diagnosis SNOMED-CT Code Diagnosis ICD10 Code Diagnosis Note [id number] Rodrigo Marlow MD [facility] [place] [address] [place] [address] 05/21/2024 14:44:36 05/21/2024 15:59:52 Pain of left shoulder joint 7694381527 0920804 M25.512 Closed fra cture of left clavicle 7674338416 5568466 S42.022A [id number] Rodrigo Marlow MD [facility] [place] [address] [place] [address] 06/02/2024 11:23:56 06/02/2024 11:39:40 Closed fracture of left clavicle 8893216843 3347232 S42.022A Pain of le ft shoulder joint 1565576472 5001919 M25.231 [id number] [address]low [address] [facility] [place] [address] [place] [address] 06/06/2024 10:00:55 06/06/2024 10:22:27 Closed fracture of left clavicle 3202517321 3270764 S42.022A Pain of le ft shoulder joint 5479606670 3604961 M25.337 [id number] [address] [facility] [place] [address] [place] [address] 06/11/2024 10:06:32 06/11/2024 11:16:50 Closed fracture of left clavicle 8274092432 0173567 S42.002D Pain of le ft shoulder joint 4356673150 6028894 M25.183 [id number] [address] [facility] [place] [address] [place] [address] 07/09/2024 10:39:55 07/09/2024 10:55:05 Closed fracture of left clavicle 4728610810 6398130 S42.002D Pain of le ft shoulder joint 9476213364 1474508 M25.512 Health Concerns Section Related Observation LastModified by Organization Detai ls LastModified Time None Recorded Concern Status LastModified by Organization Details LastModified Time None Recorded Advance Directives Directive None Recorded Payers Insurance Date Sequence Insurance Name Policy Number Policy Chavez Covered Member ID Chavez Member ID Guarantor Name 07/06/2024 2 FOR LIFE ( - MEDICARE SUPPLEMENT) Faustino Magallanes [id number] Faustino Magallanes 07/06/2024 [employer] - DMEPOS ASSIGNED (MEDICARE DME REGION B) Faustino Magallanes [id number] Faustino Magallanes 07/06/2024 1 [place] Faustino Magallanes [id number] Faustino Magallanes
--- OUTSIDE RECORDS SUMMARY | 2024-09-08 14:38 | XMS_ITS | Clinical Summary ---
Author Organization [facility] Address [address] [place] [address] Care Team Providers Care Pool Finisher Name Role Phone Goyo Dinero MD Primary Care Provider [phone] Allergies No known active allergies Medications VENTOLIN HFA 108 (90 Base) MCG/ACT inhaler 11/02/2017 Act nicole lisinopril 20 MG tablet Take 20 mg by mouth daily. 1 08/11/2018 Active Active Problems No known active problems Immunizations Immunization Administration Dates Next Due Tdap (Historical Only-select [...] 3:24 PM CDT Height 172.7 cm (5' 8) 10/16/2018 3:24 PM CDT Body Mass Index 25.09 10/16/2018 3:24 PM CDT Plan of Treatment Health Maintenance Due Date Last Done Comments Colorectal Cancer Screening Colonoscopy (10 Years) 1949 Hepatitis C 10/28/1967 Pneumococcal Vaccine: 50+ Ye ars (1 of 2 - PCV) 1968 Zoster Vaccines (1 of 2) 10/28/1999 Annual [...] patient's age to complete [place] [address] MEDICARE [facility] Care Teams Pool Finisher Relationship Specialty Start Date End Date Goyo Dinero MD [address] [place] [address] PCP - General FAMILY PRACTICE 10/16/18
== END 2024-09-08 14:36 | disposition home or self-care (01) ==
PROVIDERS: PCP Family Medicine; Visit Provider Family Medicine
DX: Z12.2 Encounter for screening for malignant neoplasm of respiratory organs (principal); Z87.891 Personal history of nicotine dependence
CPT/HCPCS: 71271

== ENCOUNTER 2024-09-30 10:36 | Outpatient (CLI) | payer MEDICARE, OTHER, SELFPAY ==
--- NOTE | ~2024-09-30 | PE_ITS ---
EXAMINATION: PET skull to mid thigh DATE: 09/30/2024 12:46 INDICATION: Solitary pulmonary nodule TECHNIQUE: Blood glucose level was 121 mg/dL. 9.757 mCi of 18-fluorodeoxyglucose (18-FDG) was administered i.v. Low dose computed tomography (CT) images were acquired from the base of the brain to the proximal thighs for attenuation correction and anatomic localization. Positron emission tomography (PET) images were acquired in the same distribution beginning 736.83 minutes after injection. Images including fused PET/CT images were reconstructed in axial, coronal, and sagittal planes. Automated exposure control technique was employed. The dose- length product was 736.83mGy-cm. COMPARISON: Chest CT dated 09/08/2024 and 05/29/[address] abdomen and pelvis dated 07/31/23 FINDINGS: Head/neck: There is symmetric increased activity in the oral cavity, palatine tonsils, ocular muscles that the right temporalis and sulci left anterior and posterior paraspinal muscles which are all without CT correlate, likely physiologic. No pathologically enlarged cervical lymphadenopathy or suspicious foci of increased FDG uptake in the visualized head or neck. Chest: Severe upper lung predominant emphysema with prominent bullous changes at the apices. There are new regions of consolidation with increased FDG activity in the paramedian the posterior segment of the right upper lobe as well as in the suprahilar right upper lobe with maximal SUV of 6.3. There is some new mild wall thickening along the medial wall of a prominent bulla at the medial right apex also with increased FDG uptake with maximal SUV of 9.4. Given the significant change in less than 2 months would strongly favor an infectious over malignant etiology. There is mild uptake with maximal SUV of 3.9 associated with the 10 x 6 mm right middle lobe nodule. Additional groundglass and linear opacities may depend aspirated bilateral lower lobes without significant increased FDG uptake and favor atelectasis over pneumonia. Calcified left lower lobe nodule consistent with old granulomatous disease. Heart size is normal. Atherosclerotic coronary artery calcification. No pericardial or pleural effusion. Thoracic aorta is normal in caliber. Mild uptake with maximal SUV of 5.0 associated with a normal-sized 1.3 x 0.6 cm precarinal lymph node which is unchanged since 07/31/2023 and likely reactive. Abdomen/pelvis/proximal thighs: Physiologic renal accumulation and excretion of FDG activity in the kidneys, bladder and along portions of ureters. Normal degree and heterogenous pattern of increased uptake throughout the liver without radiologic correlate or dominant FDG avid lesion. The gallbladder, pancreas, spleen and bilateral adrenal glands are normal. Mild uptake scattered throughout the bowels without radiologic correlate, also likely physiologic. There is prominent sigmoid diverticulosis without adjacent inflammatory change to suggest diverticulitis. No other abnormal foci of increased FDG uptake or pathologically enlarged lymphadenopathy in the abdomen, pelvis or proximal thighs. Musculoskeletal: There is mild likely degenerative joint centered uptake with associated osteoarthritis on CT at the left C2-C3 facet joint and bilateral acromioclavicular joints. There is also increased uptake along a healing but still ununited left clavicle fracture with plate and screw fixation which is new since 05/29/2023. Mild uptake is also seen are a few additional healing posterior left second second-fifth rib fractures. Scattered severe spondylosis in the cervical, thoracic and lumbar spine. No suspicious lytic, blastic or other abnormally FDG avid bone lesions. Mild likely physiologic muscular uptake about the bilateral elbows proximal forearms, right greater than left. IMPRESSION: 1. Mild increased uptake associated with the previous noted 10 x 6 number right middle lobe nodule concerning for malignancy. Percutaneous biopsy would be technically very challenging given the relatively small size of the nodule and its peripheral location near the lung base where there is significantly more as primary motion. Location along side the fissure would also significantly increase the risk of pneumothorax. 2. Increased activity associated with regions of consolidation in the right upper lobe which are new since study from 09/08/2024 which given the rapid progression most consistent with pneumonia. 3. Mild uptake associated with a precarinal lymph node which remains normal in size and unchanged since 07/31/2023, likely reactive. Reviewed, dictated and finalized at location A. IMPRESSION: 1. Mild increased uptake associated with the previous noted 10 x 6 number right middle lobe nodule concerning for malignancy. Percutaneous biopsy would be jeremías hnically very challenging given the relatively small size of the nodule and its peripheral location near the lung base where there is significantly more as pr imary motion. Location along side the fissure would also significantly increase the risk of pneumothorax. 2. Increased activity associated with regions of consolidation in the right upp er lobe which are new since study from 09/08/2024 which given the rapid progress ion most consistent with pneumonia. 3. Mild uptake associated with a precarinal lymph node which remains normal in size and unchanged since 07/31/2023, likely reactive.
--- OUTSIDE RECORDS SUMMARY | 2024-09-30 11:08 | XMS_ITS | Continuity of Care Document ---
Author Name [facility] Organization [facility] Care Team Providers Care Manpower Development Manager Name Role Phone [facility] Unavailable Unavailable Medications Combined list of outpatient medications from [...] ORAL, [facility]OR[facility]ARM[facility], 1000 ea. BOTTLE Active 6539804 4 2023 30 Pharmac y Data Transac tion Service Facilit y ESCITALOPRA M OXALATE (ESCITALOPR AM OXALATE), 10 MG, TABLET, ORAL, TORRENT PHARMAC, 1000 ea. BOTTLE Active 3986646 4 2023 30 Pharmac y Data Transac tion Service Facilit y Social History Combined list of available smoking, tobacco, and other social history from Department of Defense and Veterans Affairs facilities. Social History Type Response Date Comment Sour e This section is an empty social history section. [facility]
--- OUTSIDE RECORDS SUMMARY | 2024-09-30 11:09 | XMS_ITS | Clinical Summary ---
Author Organization [facility] Address [address] [facility] [place] [address] Care Team Providers Care Stenographer Secretary Name Role Phone Unavailable Primary Care Provider Unavailabl e Source Comments [facility],non-owned Affiliates and Associated Physician Practices is amultiple site organization consisting of ambulatory clinics and hospital sitesin [place], [place], [place] and [place]. This disclosure is being madepursuant to the Care Everywhere program and may not contain all information available regarding this patient. Last updated 17.[facility] Social History Tobacco Use Types Packs/Day Years [...]
--- OUTSIDE RECORDS SUMMARY | 2024-09-30 11:09 | XMS_ITS | Clinical Summary ---
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
--- OUTSIDE RECORDS SUMMARY | 2024-09-30 11:09 | XMS_ITS | Encounter Summary ---
Author Organization [facility] Address [address] [place] [address] Care Team Providers Care Associate Professor Of History Name Role Phone Unavailable Primary Care Provider Unavailabl e Encounter Details Date Type Department Care Team (Late st Contact Info) Description 11/27/2023 Lab Requisition [facility] - DermPath Lab [address] [facility] [place] [address] Natalia Cowan DO [address] [facility] [address] [place] [address] Social History Tobacco Use Types Packs/Day Years [...] AM CDT) Case Report Dermatopathology Report Case: [id number] Authorizing Provider: Natalia Cowan DO Collected: 11/27/2023 10:58 AM Ordering Location: [facility] - Received: 11/28/2023 06:18 AM [...] characteristic determined by the Dermatopathology Laboratory at [facility], directed by Dr. Zhanna Osuna. These tests need not be, and therefore are not, approved by the [place] Food and Drug Administration. The tests are used for clinical purposes. Billing Codes Specimen Charges Stain Charges 71223 1 1:22 PM CDT DERMATOPATHOLOGY LABORATORY Embedded Images 1:22 PM CDT DERMATOPATHOLOGY LABORATORY Pathology/Cytolo gy TISSUE SPECIMEN FROM SKIN / Unknown 11/27/2023 10:58 AM CDT 11/28/2023 6:18 AM CDT us Natalia Cowan DO LAB - PATHOLOGY/CYTOLOGY ORDERABLES Final Result DERMATOPATHOLOGY LABORATORY [facility] - Department of Dermatology [address] [place] [address], [facility] [phone] documented in this encounter Visit Diagnoses Not on filedocumented in this encounter
--- OUTSIDE RECORDS SUMMARY | 2024-09-30 11:09 | XMS_ITS | Clinical Summary ---
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 Family History [...] on file Legal Sex Male 4:01 PM 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 Gender Identity Not on file Sexual Orientation Not on file Obstetrics History Last Filed Vital Signs Vital Sign Reading Time Taken Comments Blood Pressure 138/70 04/02/2024 12:48 PM 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 Pulse 70 04/02/2024 12:48 PM 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 Temperature - - Respiratory Rate - - Oxygen Saturation 95% 04/02/2024 12:48 PM 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 Inhaled Oxygen Concentration - - Weight 75.8 kg (167 lb) 04/02/2024 12:48 PM 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 Height 172.7 cm (5' 8) 04/02/2024 12:48 PM 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 Body Mass Index 25.39 04/02/2024 12:48 PM 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 Plan of Treatment Health Maintenance Due Date Last Done Comments Colon Cancer Screening-Colonoscopy 1950 Depression Screening 1949 Fall Risk Assessment 1950 Hepatitis C Screening 1950 Hepatitis B Screening 10/28/1967 Zoster Vaccine (1 of 2) 10/28/1999 Abdominal Aortic Aneurysm (A AA) Screen 2014 Well Visit 65+ 2014 Pneumococcal vaccine 65+ (2 of 2 - PPSV23, PCV20, or PCV21) 07/07/2015 05/12/2015 Influenza Vaccine (#1) 2024 0, 11/09/2015, 11/24/2013 DTaP/Tdap/Td Vaccine (2 - Td or Tdap) 10/16/202805/2018 Insurance MEDICARE FOR LIFE MEDICARE FOR LIFE Care Teams Garment Turner Relationship Specialty Start Date End Date Goyo Dinero MD [address] [place] [address] PCP - General Family Medicine 12/11/19
--- OUTSIDE RECORDS SUMMARY | 2024-09-30 11:09 | XMS_ITS | Clinical Summary ---
Author Organization [facility] Address [address] [place] [address] Care Team Providers Care Manager Programs Name Role Phone Goyo Dinero MD Primary Care Provider [phone] Allergies No known active allergies Medications VENTOLIN [...] patient's age to complete [place] [address] MEDICARE [facility] Care Teams Manager Programs Relationship Specialty Start Date End Date Goyo Dinero MD [address] [place] [address] PCP - General FAMILY PRACTICE 10/16/18
== END 2024-09-30 10:37 | disposition home or self-care (01) ==
PROVIDERS: PCP Family Medicine; Visit Provider Family Medicine
DX: R91.1 Solitary pulmonary nodule (principal); R91.8 Other nonspecific abnormal finding of lung field
CPT/HCPCS: 78815; A9552

== ENCOUNTER 2024-11-26 08:48 | Outpatient (CLI) | payer MEDICARE, OTHER, SELFPAY ==
--- OUTSIDE RECORDS SUMMARY | 2024-11-13 08:00 | XMS_ITS | Encounter Summary ---
Author Organization [facility] Address [address] [place] [address] Care Team Providers Care Natural Resources Professor Name Role Phone Goyo Dinero MD Primary Care Provider [phone] Darvin Garcia MD Unavailable [phone] Harpreet Bates MD Unavailable [phone] Encounter Details Date Type Department Care Team (Late st Contact Info) Description 11/12/2024 Results Follow-Up [facility] Pulmonology [address] [facility] [address] [place] [address] [phone] Amber Kaye MD [address] [place] [address] Cytology Social History Tobacco Use Types Packs/Day Years Used Date Smoking Tobacco: Every Day Cigarettes 0.2 60.8 Started: 1966 Passive Smoke Exposure: Past Smokeless Tobacco: Never Comments:Pt reports he is tr cristal to quit smoking. Alcohol Use Standard Drinks/Week Comments Never 0 (1 standard drink = 0.6 oz pur e alcohol) AUDIT-C Answer Date Recorded Q1: How often do you have a drink containing alcohol? Never 11/04/2024 Q2: How many drinks containi ng alcohol do you have on a typical day when you are drinking? Patient does not drink Q3: How often do you have si x or more drinks on one occasion? Never 11/04/2024 Personal Safety Answer Date Recorded Have you ever been in or are you currently in a harmful physical or emotional relationship or is someone making you feel afraid or unsafe? 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 Gender Identity Not on file Sexual Orientation Not on file documented as of this encounter Plan of Treatment Not on file documented as of this encounter Visit Diagnoses Not on filedocumented in this encounter Care Teams Natural Resources Professor Relationship Specialty Start Date End Date Goyo Dinero MD [address] [place] [id number] PCP - General Family Medicine 12/11/19 Darvin Garcia MD [address] [facility] [address] [place] [address] Surgeon Thoracic Surgery 10/21/24 [place] [address] [place] [address] [address] [place], [place] [id number] Radiation Oncologist Radiation Oncology 10/21/24 documented as of this encounter
--- OUTSIDE RECORDS SUMMARY | 2024-11-13 08:00 | XMS_ITS | Clinical Summary ---
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 Gender Identity Not on file Sexual Orientation Not on file Plan of Treatment Health Maintenance Due Date Last Done Comments Hepatitis C Virus (HCV) Screening 1950 Cologuard 1994 Colonoscopy 1994 Colorectal Cancer Screening 1994 Immunochemical Fecal Occult Blood 1994 Zoster Immunization (1 of 2) 10/28/1999 Pneumococcal Immunization (50+ years) (2 of 2 - PCV20 or PCV21) 05/11/2016 05/12/2015 Influenza Immunization (#1) 10/13/202412/13, 11/20/2019, 11/09/2015, Additional history exists SARS-COV-2 Immunization ( - season) 2024 02/01/2021, 04/16/2020 Respiratory Syncytial Virus (RSV) Immunization [...]
--- OUTSIDE RECORDS SUMMARY | 2024-11-13 08:00 | XMS_ITS | Clinical Summary ---
Author Organization [facility] Address [address] [place] [address] Care Team Providers Care Political Scientist Name Role Phone Unavailable Primary Care Provider Unavailabl e Source Comments [facility],non-owned Affiliates and Associated Physician Practices is amultiple site organization consisting of ambulatory clinics and hospital sitesin [place], [place], [place] and [place]. This disclosure is being madepursuant to the Care Everywhere program and may not contain all information available regarding this patient. Last updated 17.[facility] Social History Tobacco Use Types Packs/Day Years [...] 10/28/1999 ZOSTER VACCINE (1 of 2) 10/28/1999 DEPRESSION SCREENING 02/13/2024 COVID-19 VACCINE ( - 2023-2 5 season) 2024 INFLUENZA VACCINE (#1) 2024 Respiratory Syncytial Virus [...]
--- OUTSIDE RECORDS SUMMARY | 2024-11-13 08:00 | XMS_ITS | Encounter Summary ---
Author Organization [facility] Address [address] [place] [address] Care Team Providers Care Insurance Sales Agent Name Role Phone Unavailable Primary Care Provider Unavailabl e Encounter Details Date Type Department Care Team (Late st Contact Info) Description 11/27/2023 Lab Requisition [facility] - DermPath Lab [address] [facility] [place] [address] Natalia Cowan DO [address] [facility] [address] [place] [address] Social History Tobacco Use Types Packs/Day Years [...] AM CDT) Case Report Dermatopathology Report Case: [id number] Authorizing Provider: Natalia Cowan DO Collected: 11/27/2023 10:58 AM Ordering Location: [facility] - Received: 11/28/2023 06:18 AM DermPath Lab [...] characteristic determined by the Dermatopathology Laboratory at [facility], directed by Dr. Zhanna Osuna. These tests need not be, and therefore are not, approved by the [place] Food and Drug Administration. The tests are used for clinical purposes. Billing Codes Specimen Charges Stain Charges 50681 1 1:22 PM CDT DERMATOPATHOLOGY LABORATORY Embedded Images 1:22 PM CDT DERMATOPATHOLOGY LABORATORY Pathology/Cytolo gy TISSUE SPECIMEN FROM SKIN / Unknown 11/27/2023 10:58 AM CDT 11/28/2023 6:18 AM CDT us Natalia Cowan DO LAB - PATHOLOGY/CYTOLOGY ORDERABLES Final Result DERMATOPATHOLOGY LABORATORY [facility] - Department of Dermatology [address] [place] [address], [facility] [phone] documented in this encounter Visit Diagnoses Not on filedocumented in this encounter
--- OUTSIDE RECORDS SUMMARY | 2024-11-13 08:00 | XMS_ITS | Clinical Summary ---
Author Organization [facility] Address [id number] [place] [id number] Care Team Providers Care Freight Loader Name Role Phone Goyo Dinero MD Primary Care Provider [phone] Darvin Garcia MD Unavailable [phone] Harpreet Bates MD Unavailable [phone] Allergies No known active allergies Medications umeclidinium-carolann anteroL (ANORO ELLIPTA) 62.5-25 mcg/actuation blister with device Inhale 1 puff nightly Active aspirin 81 mg enteric coated tablet Take 1 tablet (81 mg total) by mouth daily 30 tablet 11 4 Active rosuvastatin (CRESTOR) 5 mg tablet Take 1 tablet (5 mg total) by mouth daily 4 Active escitalopram (LEXAPRO) 10 mg tablet Take 1 tablet (10 mg total) by mouth daily 4 Active cyanocobalamin (Vitamin B-12) 1,000 mcg tabletIndication s:Prevention of Vitamin B12 Deficiency Take 1 tablet (1,000 mcg total) by mouth daily Active melatonin 10 mg tablet Active ALPRAZolam (XANAX) 0.5 mg tablet Take 1 tablet (0.5 mg total) by mouth nightly as needed for sleep 4 Active metoprolol XL (TOPROL-XL) 50 mg [...] 60 tablet 3 5 04/02/19 26 Active Additional Information Patient not taking.Reported on 2024 nicotine (NICODERM CQ) [address] 1 patch on the skin daily 5 Active Active Problems Patient Care Coordination No te Formatting of this note migh t be different from the original. This is a 73 year old male presenting to us at the request of Dr. Goyo Dinero for an evaluation of a lung nodule. He has a medical history significant for hypertension, hypercholesteremia, mild sleep apnea and COPD. He is a current smoker. He underwent a lung cancer screening CT scan on 05/26/2022. There are calcified mediastinal lymph nodes, consistent with chronic granulomatous disease. Severe bullous emphysema. There is a 2 mm right upper lobe nodule. There is a 4 mm right middle lobe nodule. Calcified granuloma left lung base. He underwent a lung cancer screening CT scan on 09/08/2024. There was no evidence of any significant mediastinal, hilar or axillary lymphadenopathy. The mediastinal soft tissues appear normal. There is a 1 cm right middle lobe nodule that is increased from the prior exam. There is advanced emphysema in the upper lobes in particular. He underwent a PET 09/30/2024. There is severe upper lung predominant emphysema with prominent bullous changes at the apices. There are new regions of consolidation with increased FDG activity in the paramedian and posterior segment of the right upper lobe as well as in the suprahilar right upper lobe with maximum SUV of 6.3. There is some new mild wall thickening along the medial wall of the prominent fold at the medial right apex also with increased FDG uptake with maximum SUV of 9.4. Given the significant change in less than 2 months but strongly favor an infectious over malignant etiology. There was mild uptake with maximal SUV of 3.9 associated with a 10 x 6 mm right middle lobe nodule. Additional ground-glass and linear opacities may depend aspirated bilateral lower lobes without significant increased FDG uptake in favor atelectasis over pneumonia. Calcified left lower lobe nodule consistent with old granulomatous disease. Atherosclerotic coronary artery calcification. Mild uptake with maximal SUV 5.0 associated with a normal-sized 1.3 x 0.6 cm precarinal lymph node which is unchanged since 07/31/2023 and likely reactive. He is here for further surgical evaluation and discussion. Problem Noted Date Diagnosed Date Lung nodules 2024 Abdominal pain 10/20/2024 Age-related nuclear cataract, bilateral 10/21/19 Alcohol use disorder, moderate, in early remissi on 10/20/2024 Atherosclerosis of aorta 10/20/2024 Basal cell carcinoma of cheek 10/20/2024 Benign prostatic hyperplasia with lower urinary tract symptoms 10/20/2024 Cigarette nicotine dependenc e with nicotine-induced disorder 10/20/2024 Contact with and (suspected) exposure to other hazardous substances 10/20/2024 COPD (chronic obstructive pulmonary disease) 09/2024 Dyspnea 10/20/2024 BP (high blood pressure) 10/20/2024 Exposure to potentially hazardous substance 09/2024 Overview (10/20/2024): Feb 19, 2024 Entered By: CARMELA ALVAREZ I Comment: Airborne Hazard and Open [place] [employer] exposures Heart palpitations 10/20/2024 Hypercholesteremia 10/20/2024 Hypo-osmolality and hyponatremia 10/20/2024 Idiopathic progressive neuropathy 10/20/2024 Insomnia 10/20/2024 Major depressive disorder 10/20/2024 Nonspecific colitis 10/20/2024 Nonsustained paroxysmal ventricular tachycardia 10/20/2024 Obstructive sleep apnea 10/20/2024 Paresthesia of skin 10/20/2024 Polyneuropathy, unspecified 10/20/2024 Schatzki's ring 10/20/2024 Sensorineural hearing loss (SNHL) of both ears 0 10/20/2024 Lung nodule 10/20/2024 Encounters Date Type Department Care Team Description 11/12/2024 Results Follow-Up [facility] Pulmonology [address] [phone] Amber Kaye MD Cytology 11/04/2024 2:40 PM CDT Anesthesia Event [facility] [place] [address] [place] [address] Mj Bright MD Taylor-White, Carlotta A., NP 11/04/2024 12:00 PM CDT - 11/04/2024 1:55 PM CD[place] [facility] [place] [address] [place] [address] Amber Kaye MD BRONCHOSCOPY 11/04/2024 9:57 AM CDT - 11/04/2024 5:41 PM CDT Hospital [place] [facility] [place] [address] [place] [address] Amber Kaye MD Lung nodules Discharge Disposition: Discharge to home or self care 2024 11:15 AM CDT Office Visit [facility] Pulmonology [address] [facility] [address] [place] [address] Amber Kaye MD Lung nodule (Primary Dx); Panlobular emphysema (HCC); Tobacco use 10/23/2024 Telephone [facility] Medicine Surgery [address] [facility] Floor [address] [place] [address] Seun Overton NP 10/22/2024 9:30 AM CDT Consult [facility] Building 2 Radiation Oncology [address] [place] [address] Harpreet Bates MD Lung nodule (Primary Dx) 10/20/2024 9:19 AM CDT - 10/20/2024 11:59 PM CDT Hospital Encounter [facility] Medicine Pulmonary [address] [facility] 2nd Floor [address] [place] [address] Lung nodule Discharge Disposition: Discharge to home or self care 10/20/2024 8:30 AM CDT Office Visit [facility] Medicine Surgery [address] [place] [address] Darvin Garcia MD Lung nodule (Primary Dx); Mass of middle lobe of right lung; Dyspnea, unspecified type; Pulmonary emphysema, unspecified emphysema type (HCC); Cigarette nicotine dependence with nicotine-induced disorder 10/20/2024 8:17 AM CDT - 10/20/2024 11:59 PM CDT Hospital Encounter [facility] [address] [place] [address] Discharge Disposition: Discharge to home or self care 10/20/2024 8:17 AM CDT - 10/20/2024 11:59 PM CDT Hospital Encounter [facility] [address] [place] [address] Discharge Disposition: Discharge to home or self care 10/20/2024 Telephone [facility] Building 2 Radiation Oncology [address] [place] [address] Betty Clark MA 10/20/2024 [facility] [address] [place] [phone] Seun Overton NP Lung nodule (Primary Dx) 10/15/2024 [facility] [address] [place] [phone] Goyo Dinero MD Lung nodule (Primary Dx) from Last 3 Months Surgical History Surgery Date Site/Laterality Comments HEMORRHOID SURGERY CLAVICLE SURGERY 05/13/2024 - 06/11/2024 Left SKIN CANCER EXCISION 02/12/2023 - 02/12/2024 Right Medical History Medical History Date Comments COPD (chronic obstructive pu lmonary disease) Sleep apnea mild wears cpap nightly Hypertension Atherosclerosis of aorta Atherosclerotic heart diseas e of makah coronary artery without angina pectoris H/O cardiovascular stress test 07/2023 N egative EKG portion of stress test. There is no ischemia. There is a fixed inferior/ infero-apical defect that resolves with prone imaging, consistent with attenuation artifact. Global left ventricular function is normal. Left ventricular ejection fraction is 70 %. Lung nodules right mid lobe Prediabetes not on any meds Hyperlipidemia Family History Medical History Relation Name Comments Heart failure Brother Colon cancer Maternal Grandmother Alzheimer's disease Mother Relation Name Status Comments Brother Father Maternal Grandmother Mother Social History Tobacco Use Types Packs/Day Years Used Date Smoking Tobacco: Every Day Cigarettes 0.2 60.8 Started: 1964 Passive Smoke Exposure: Past Smokeless Tobacco: Never Tobacco Cessation:Ready to Q uit: Not Asked; Counseling Given: Not Answered Comments:Pt reports he is trying to quit smoking. 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 Gender Identity Not on file Sexual Orientation Not on file Obstetrics History Last Filed Vital Signs Vital Sign Reading Time Taken Comments Blood Pressure 108/69 11/04/2024 5:20 PM CDT Pulse 68 11/04/2024 5:20 PM CDT Temperature 36.1 C (97 F) 11/04/2024 4:50 PM CDT Respiratory Rate 22 11/04/2024 5:20 PM CDT Oxygen Saturation 95% 11/04/2024 5:20 PM CDT Inhaled Oxygen Concentration - - Weight 74.3 kg (163 lb 12.8 oz) 025 10:20 AM CDT Height 172.7 cm (5' 8) 11/04/2024 10:2 0 AM CDT Body Mass Index 24.91 11/04/2024 10:20 AM CDT Plan of Treatment Health Maintenance Due Date Last Done Comments Colon Cancer Screening-Colonoscopy 1950 Depression Screening 1950 Hepatitis C Screening 1950 Hepatitis B Screening 10/28/1967 Zoster Vaccine (1 of 2) 10/28/1999 Abdominal Aortic Aneurysm (A AA) Screen 2014 Well Visit 65+ 2014 Pneumococcal vaccine 65+ (2 of 2 - PPSV23, PCV20, or PCV21) 07/07/2015 05/12/2015 Influenza Vaccine (#1) 2024 , 11/20/2019, 11/09/2015, Additional history exists Fall Risk Assessment 11/04/2025 11/04/2024 DTaP/Tdap/Td Vaccine (2 - Td or Tdap) 10/16/2028 10/16/2018 Medical Devices Implanted Type Area [employer] Worker Device Identifier Shelf Expiration Date Model / Serial / Lot Plate Plate Left: Clavicle Procedures Procedure Name Priority Date/Time Associated Diagnosis Comments PA AN PROCEDURE PLACEHOLDER Routine 11/04/2024 3:05 PM CDT PA AN ELECTIVE ENDOTRACHEAL AIRWAY Routine 11/04/2024 3:05 PM CDT CYTOLOGY Routine 11/04/2024 3:01 PM CDT Lung nodules BRONCHOSCOPY ENDOBRONCHIAL ULTRASOUND 11/04/2024 2:40 PM CDT Lung nodules BRONCHOSCOPY 11/04/2024 2:40 PM CDT Lung nodules BRONCHOSCOPY 11/04/2024 2:05 PM CDT ECG 12-LEAD STAT 11/04/2024 10:43 AM CDT EGFR Routine 11/04/2024 10:21 AM CDT DIFFERENTIAL AUTO Routine 11/04/2024 10: 21 AM CDT APTT Routine 11/04/2024 10:21 AM CDT PROTIME-INR Routine 11/04/2024 10:21 AM CDT BASIC METABOLIC PANEL Routine 11/04/2024 10:21 AM CDT CBC WITH AUTO DIFFERENTIAL Routine 11/04/2024 10:21 AM CDT PULMONARY FUNCTION TEST (PFT) Routine 10/20/2024 10:07 AM CDT Lung nodule PET OUTSIDE REFERENCE Routine 10/20/2024 8:[address] BODY OUTSIDE REFERENCE Routine 10/20/2024 8:17 AM CDT from Last 3 Months Results * PA AN ELECTIVE ENDOTRACHEAL AIRWAY, PA AN PROCEDURE PLACEHOLDER (11/04/2024 3:05 PM CDT) Narrative Willard Hinojosa CRNA - 11/04/2024 3:05 PM CDT Willard Hinojosa CRNA 11/04/2024 3:06 PM Airway Patient location: OR Urgency: elective Indications for airway management: anesthesia Difficult airway: no Staff: Supervising provider: Mj Bright MD Placed by: GAME AUTHOR: Willard Hinojosa CRNA Emergent airway documentation: Risks and benefits discussed: yes Consent obtained: yes Consent given by: patient Airway prep: Preoxygenated: yes Patient position: sniffing Mask difficulty assessment: 2 - vent by mask + OA or adjuvant Spontaneous ventilation during airway: absent Sedation level during airway: deep Final airway details: Final airway type: endotracheal airway Tube type: ETT ETT size: 8.5 mm Cuffed: yes Technique used for successful ETT placement: video laryngoscopy Devices/Methods used in placement: intubating stylet Insertion site: oral Blade type: LoPro S3. Video blade type: Glidescope Cormack-Lehane (video): grade I - full view of glottis Cuff volume: 6 mL Cuff inflated with: air ETT to lips: 22 cm Placement verified by: auscultation and CO2 detection Airway secured with: other (pink tape) Number of attempts: 1 Planned trial extubation: yes Additional comments: Atraumatic intubation by SRNA. Vish Dentition as preop. Breath sounds clear and equal bilaterally. Consistent and appropriate end-tidal CO2 present. us Mj Bright MD ANESTHESIA ORDERABLES Final Re sult * Cytology (11/04/2024 3:01 PM CDT) Fine needle aspirate (Lymph Node (Cytology)) 11/04/2024 3:01 PM CDT Narrative PATHOLOGY [facility] - 11/07/2024 2:32 PM CDT EPIC results best viewed via link to PDF [facility] [place] [address] Note to Patients: This report may contain a detailed description of human tissue sent by a health care provider to the laboratory for pathologic evaluation. The content of this report is essential for diagnosis and may provide important critical findings. This information may be unfamiliar to patients to review without a medical professional present. It is advised that the patient review this report in the presence of a health care provider who can answer questions and explain the details. CYTOPATHOLOGY REPORT FINAL Patient Name: LUIGI ROBERTSON Gender: M : 1950 (Age: 74) Address: [address] [place], [place] [phone] Hospital #: [id number] Taken:11/04/2024 Received:11/04/2024 Reported: 11/07/2024 Patient Type: B [facility] OUT[facility] Service: Surgery Location: Physician(s): MD Goyo Mart M.D. FINAL DIAGNOSIS A. Lymph node, 4 left, endobronchial ultrasound guided fine needle aspiration: - Mixed lymphocytes - Negative for metastatic carcinoma B. Lymph node, subcarinal, level 7, endobronchial ultrasound guided fine needle aspiration: - Mixed lymphocytes - Negative for metastatic carcinoma C. Lymph node, 10 right, endobronchial ultrasound guided fine needle aspiration: - Mixed lymphocytes - Negative for metastatic carcinoma D. Lymph node, 11 right, endobronchial ultrasound guided fine needle aspiration: - Mixed lymphocytes - Negative for metastatic carcinoma Comments Direct smears and cell block from the level 4L, level 7, and level 10R (parts A- C) a show mixed lymphocytes. Direct smears and cell block from the 11R lymph node (part D) shows some slightly larger cells which, on cell block, appear to be reactive lymph node. I hrk/11/07/2024 14:32 By this signature, I attest that the above diagnosis is based upon my personal examination of the slides(and/or other material indicated in the diagnosis). Florencia Jenkins M.D. Report Electronically Reviewed and Signed Out By Florencia Jenkins M.D. 11/07/2024 14:32:33 Rachaely Carmine, CT (ASCP) Gross Description A. Lymph node, level 4 left, endobronchial ultrasound guided fine needle aspiration: 1 Pap stained smear and 1 Diff-Quik stained smear. 1 cell block prepared from needle rinse tube. Aspirated by clinician. (tcg) B. Lymph node, subcarinal, level 7, endobronchial ultrasound guided fine needle aspiration: 1 Pap stained smear and 1 Diff-Quik stained smear. 1 cell block prepared from needle rinse tube. Aspirated by clinician. (tcg) C. Lymph node, 10 right, endobronchial ultrasound guided fine needle aspiration: 3 Pap stained smears and 3 Diff-Quik stained smears. 1 cell block prepared from needle rinse tube. Aspirated by clinician. (tcg) D. Lymph node, 11 right, endobronchial ultrasound guided fine needle aspiration: 2 Pap stained smears and 2 Diff-Quik stained smears. 1 cell block prepared from needle rinse tube. Aspirated by clinician. (tcg) A. ~25 mLs of CytoRichRed solution with 2 smears (1 Diff-Quik & 1 AirDry) from Lymph node 4L EBUS Fine Needle Aspiration B. ~25 mLs of CytoRichRed solution with 2 smears (1 Diff-Quik & 1 AirDry) from Lymph node station 7 EBUS Fine Needle Aspiration C. ~20 mLs of CytoRichRed solution with 6 smears (3 Diff-Quik & 3 AirDry) from Lymph node station 10 R EBUS Fine Needle Aspiration D. ~40 mLs of CytoRichRed solution with 4 smears (2 Diff-Quik & 2 AirDry) from Lymph node 11R EBUS Fine Needle Aspiration Clinical Diagnosis and History The patient is a 74 year old man with lung nodules. Immediate Evaluation A. Lymph node, 4 left, endobronchial ultrasound guided fine needle aspiration: Evaluation Episode 1 Overall Adequacy: Adequate Total Evaluation Episodes: 1 Preliminary Diagnosis: adequate, Lymph node present B. Lymph node, subcarinal, level 7, endobronchial ultrasound guided fine needle aspiration: Evaluation Episode 1 Overall Adequacy: Adequate Total Evaluation Episodes: 1 Preliminary Diagnosis: Lymph node present C. Lymph node, 10 right, endobronchial ultrasound guided fine needle aspiration: Evaluation Episode 1 Overall Adequacy: atypical epithelium, no lymphoid component Evaluation Episode 2 Overall Adequacy: lymph node present, malignancy not identified Evaluation Episode 3 Overall Adequacy: lymph node present, malignancy not identified, limited by thick clot Total Evaluation Episodes: 3 Preliminary Diagnosis: Atypical D. Lymph node, 11 right, endobronchial ultrasound guided fine needle aspiration: Evaluation Episode 1 Overall Adequacy: suspicious for malignancy Evaluation Episode 2 Overall Adequacy: lymphoid, paucellular Total Evaluation Episodes: 2 Preliminary Diagnosis: Florencia Jenkins M.D 11/04/2024 Microscopic slide review and interpretation for this case was performed at [facility], Department of Surgical Pathology, [address] [facility] [place] [place] [id number], [place] [address] CLIA # [id number] REPORT IMAGES AND SCANNED DOCUMENTS, IF INCLUDED, ONLY VIEWABLE IN PDF VERSION OF REPORT The performance characteristics of some immunohistochemical stains, in-situ hybridization and fluorescence in-situ hybridization tests and immunophenotyping by flow cytometry cited in this report (if any) were determined by the Surgical Pathology and Flow Cytometry Departments at [facility] as part of an ongoing software quality analyst program and in compliance with federally mandated regulations drawn from the Clinical Laboratory Improvement Act of 1988 (CLIA '88). Some of these tests rely on the use of analyte specific reagents and are subject to specific labeling requirements by the US Food and Drug Administration. Such diagnostic tests may only be performed in a facility that is certified by the Department of Health and Human Services as a high complexity laboratory under CLIA '88. The FDA has determined that such clearance or approval is not necessary. This test is used for clinical purposes. It should not be regarded as investigational or for research. Nevertheless, federal rules concerning the medical use of analyte specific reagents require that the following disclaimer be attached to the report: This test was developed and its performance characteristics determined by the Surgical Pathology and Flow Cytometry Departments of [facility]. It has not been cleared or approved by the U. S. Food and Drug Administration. us Amber Kaye MD LAB CYTOLOGY ORDERABLES F inal Result PATHOLOGY [facility] * Bronchoscopy (11/04/2024 2:05 PM CDT) Anatomical Region Laterality Modality Other Narrative Procedure Note Amber Kaye MD - 11/04/2024 2:05 PM CDT [facility] Pulmonary Patient Name: Luigi Robertson Procedure Date: 11/04/2024 2:05 PM Date of : 1950 Admit Type: Outpatient Age: 74 Room: [facility] OPERATING [facility]OM 01 Gender: Male Note Status: Finalized Attending MD: Amber Kaye M.D., Procedure: Bronchoscopy Indications: Hilar lymphadenopathy of the right side,Mediastinal adenopathy Providers: Amber Kaye M.D. Referring MD: Requesting Physician: Medicines: General Anesthesia Complications: No immediate complications Procedure: Pre-Anesthesia Assessment: - Pre-procedure Verification Prior to the procedure, the patient's identity was verified by full name, date of and medical record number. The patient's identity was verifiedon all pertinent medical records. Also prior to the procedure, a History and Physical was performed,and patient medications, allergies and sensitivitieswere reviewed. The risks and benefits of the procedureand the sedation options and risks were discussed withthe patient. All questions were answered and informed consent was obtained. Prior to the start of the procedure, the patient's identification, proposed procedure, accurate signed consent, correctly labeled images and records, and need for prophylactic antibiotics were verified bythe physician, the nurse, the anesthesiologist and the smt operator in the procedure room. Patient was placed under general anesthesia. An ET tube was placed for bronchoscopy. After obtaining informed consent, the [id number] bronchoscope was introduced through the mouth, viathe endotracheal tube and advanced to thetracheobronchial tree of both lungs. the [id number] Bronchoscope EBUSwas introduced through the and advanced to the. The procedure was accomplished with ease. Findings: First, the therapeutic bronchoscope was inserted for visualinspection of the airways. Airways appeared normal other significant secretions. Therapeutic aspiration of the airways, initial encounter, wasperformed with significant mucous removed by aspiration. The therapeutic bronchoscope was removed. The linear EBUS exam was performed to provide concurrent staging andto help determine extent of disease. Stations 4L, 7, 10R and 11R were enalrged to >5mm. Multiple passes were made using a 21G Core Biopsyand 22G Core biopsy TBNA needle. Stations 4R was scanned but < 5mm andthus did not meet sampling criteria. Following completion of all diagnostic and therapeutic procedures, hemostasis was verified with the theraputic scope. The scope wasremoved and procedure concluded. Impression: - Hilar lymphadenopathy of the right side - Mediastinal adenopathy Recommendation: - Await biopsy results. Amber Kaye M.D. Amber Kaye M.D. 11/04/2024 4:24:50 PM . Number of Addenda: 0 Note Initiated On: 11/04/2024 2:05 PM us Amber Kaye MD ENDOSCOPY PROCEDURES Chanel l Result * ECG 12 lead (11/04/2024 10:43 AM CDT) Ventricular Rate EKG/Min 52 BPM [facility] Atrial Rate 52 BPM [facility] PA-Interval (MSEC) 174 ms [facility] QRS-Interval (MSEC) 86 ms [facility] QT-Interval (MSEC) 438 ms [facility] QTc 407 ms [facility] P Sharon 46 degrees [facility] R Sharon 38 degrees [facility] T Sharon 49 degrees [facility] Diagnosis Sinus bradycardia Otherwise normal ECG No previous ECGs available Confirmed by ELVIE CARRILLO M.D. ([id number]) on 11/04/2024 11:55:35 AM [facility] 11/04/2024 10:4 3 AM CDT 11/04/2024 11:55 AM CDT us Sade Lyle CNC TECHNICIAN ECG ORDERABLES Chanel l Result [facility] * eGFR (11/04/2024 10:21 AM CDT) eGFR >90 >=60 mL/min/1. 73 m2 Comment: Interpretive Data Reference Interval Normal >/= 90 mL/min/1.73m2 Mildly decreased* 60 - 89 mL/min/1.73m2 Mildly to moderately decreased 45 - 59 mL/min/1.73m2 Moderately to severely decreased 30 - 44 mL/min/1.73m2 Severely decreased 15 - 29 mL/min/1.73m2 Kidney Failure < 15 mL/min/1.73m2 *Relative to young adult level Estimated glomerular filtration rate is determined by the 2020 CKD-EPI equation recommended by the [employer] (A Unifying Approach to GFR Estimation: Recommendations of the NKF-ASK Task Force on Reassessing the Inclusion of Race in Diagnosing Kidney Disease, JASN 2020). The CKD-EPI equation should not be used for patients with unstable renal function and has not been validated in children and those over 70. Current interpretive data was last reviewed 2020. Blood 11/04/2024 10:2 1 AM CDT 11/04/2024 10:26 AM CDT us Amber Kaye MD LAB BLOOD ORDERABLES Chanel l Result BEL 6128 [facility] Department of Laboratories [place], [place] [id number] * (ABNORMAL) Differential, auto (11/04/2024 10:21 AM CDT) Neutrophil abs 5.39 1.50 - 6.50 K/cumm Imm gran abs 0.03 0.00 - 0.10 K/cumm [facility] Lymphocyte abs 2.50 0.80 - 3.30 K/cumm [facility] Monocyte abs 1.25(H) 0.20 - 0.80 K/cumm [facility] Eosinophil abs 0.28 0.00 - 0.50 K/cumm [facility] Basophil abs 0.06 0.00 - 0.10 K/cumm [facility] Neutrophil pct 56.8 % [facility] Comment: Interpretive Data Percent cell count reference ranges are not reported, since discordance with absolute values may lead to misinterpretation of CBC data. Current Interpretive Data was last revised on 2017. Imm gran pct 0.3 % [facility] Comment: Interpretive Data Percent cell count reference ranges are not reported, since discordance with absolute values may lead to misinterpretation of CBC data. Current Interpretive Data was last revised on 2017. Lymphocyte pct 26.3 % [facility] Comment: Interpretive Data Percent cell count reference ranges are not reported, since discordance with absolute values may lead to misinterpretation of CBC data. Current Interpretive Data was last revised on 2017. Monocyte pct 13.1 % [facility] Comment: Interpretive Data Percent cell count reference ranges are not reported, since discordance with absolute values may lead to misinterpretation of CBC data. Current Interpretive Data was last revised on 2017. Eosinophil pct 2.9 % [facility] Comment: Interpretive Data Percent cell count reference ranges are not reported, since discordance with absolute values may lead to misinterpretation of CBC data. Current Interpretive Data was last revised on 2017. Basophil pct 0.6 % [facility] Comment: Interpretive Data Percent cell count reference ranges are not reported, since discordance with absolute values may lead to misinterpretation of CBC data. Current Interpretive Data was last revised on 2017. Blood 11/04/2024 10:2 1 AM CDT 11/04/2024 10:26 AM CDT us Amber Kaye MD LAB BLOOD ORDERABLES Chanel l Result BEL 8[address] [facility] [place] [address] * CBC with auto differential (11/04/2024 10:21 AM CDT) [facility] WBC 9.51 3.80 - 9.90 K/cumm Hgb 14.3 13.0 - 17.5 g/dL [facility] Hct 43.6 38.9 - 50.3 % [facility] Plt 261 150 - 400 K/cumm [facility] MPV 10.4 9.1 - 12.3 fL [facility] RBC 4.59 4.30 - 5.80 M/cumm [facility] MCV 95.0 81.3 - 96.4 fL [facility] MCH 31.2 27.1 - 33.3 pg [facility] MCHC 32.8 32.3 - 35.7 g/dL [facility] RDW CV 13.9 11.1 - 14.9 % [facility] RDW SD 48.0 35.7 - 48.1 fL [facility] NRBC abs 0.00 0.00 - 0.01 K/cumm [facility] Blood 11/04/2024 10:2 1 AM CDT 11/04/2024 10:26 AM CDT Result [facility] Amber Kaye MD LAB BLOOD ORDERABLES Chanel l Result Performing Organization Address City/[facility] Co de Phone Number [address] [address] * aPTT (11/04/2024 10:21 AM CDT) [facility] aPTT 31 22 - 37 sec Comment: Interpretive data aPTT test has not been evaluated for monitoring heparin therapy. The anti-Xa is the preferred test. Current interpretive data was last revised on 2019. Blood 11/04/2024 10:2 1 AM CDT 11/04/2024 10:26 AM CDT Amber Kaye MD LAB BLOOD ORDERABLES Chanel l Result Performing Organization Address City/[facility]/ZIP Co de Phone Number [address] [place] [address] * Protime-INR (11/04/2024 10:21 AM CDT) PT 12.70 12.00 - 14.60 sec INR 0.95 0.90 - 1.20 [facility] Comment: Interpretive data Oral anticoagulant therapeutic ranges: Venous thromboembolism prophylaxis or treatment: 2.0-3.0 CARDIOLOGY Standard range: 2.0-3.0 High-intensity range: 2.5-3.5 Refer to indication-specific guidelines for appropriate target ranges for prosthetic heart valve replacement. Current interpretive data was last revised on 2019. Blood 11/04/2024 10:2 1 AM CDT 11/04/2024 10:26 AM CDT Amber Kaye MD LAB BLOOD ORDERABLES Chanel l Result [address] [address] * (ABNORMAL) Basic metabolic panel (11/04/2024 10:21 AM CDT) Pathologist [facility] Sodium 138 135 - 145 mmol/L Potassium, pl 4.0 3.3 - 4.9 mmol/L [facility] Chloride 103 97 - 110 mmol/L [facility] CO2 26 22 - 32 mmol/L [facility] Anion gap 9 2 - 15 mmol/L [facility] BUN 11 6 - 25 mg/dL [facility] Creatinine 0.73(L) 0.80 - 1.30 mg/dL [facility] Glucose 114 70 - 199 mg/dL [facility] Comment: Interpretive Data Fasting glucose >/= 126 mg/dl is diagnostic for diabetes. Fasting is defined as no caloric intake for at least 8 hours. Fasting glucose between 100 mg/dl to 125 mg/dl is diagnostic of prediabetes. In a patient with classic symptoms of hyperglycemia or hyperglycemic crisis, a random glucose >/= 200 mg/dl is diagnostic for diabetes. In the absence of unequivocal hyperglycemia, results should be confirmed by repeat testing. The classification and Diagnosis of Diabetes Diabetes Care 202; 46: S19-S40. Current interpretive data was last revised 2022. Calcium 9.0 8.5 - 10.3 mg/dL [facility] Blood 11/04/2024 10:2 1 AM CDT 11/04/2024 10:26 AM CDT us Amber Kaye MD LAB BLOOD ORDERABLES Chanel l Result BEL 7[address] [facility] Department [place] [address] * Pulmonary Function Test - (10/20/2024 10:07 AM CDT) [facility] FVC PRE 4.37 L [facility] FVC %PRE PRED 122 % [facility] FVC POST 4.62 L [facility] FVC %POST PRED 128 % [facility] FEV1 PRE 1.88 L [facility] FEV1 %PRE PRED 70 % [facility] FEV1 POST 2.00 L [facility] FEV1 %POST PRED 74 % [facility] FEV1/FVC PRE 43.1 % [facility] FEV1/FVC POST 43.2 % [facility] DLCO PRE 13.3 ml/min/mmH g [facility] DLCO %PRE PRED 56 % [facility] Anatomical Region Laterality Modality PFT 10/20/2024 9:23 AM CDT Narrative 10/20/2024 1:30 PM CDT PFT performed at:->[facility]- [facility]-MD Procedure:->Complete/Full PFT Standard:->Spirometry, Spirometry w/bronchodilator, DLCO and Lung Volumes Pulmonary Function Test Interpretation SPIROMETRY: There is scooping of the expiratory limb of the flow-volume curve, consistent with expiratory airflow obstruction. There is a decrease in expiratory airflow at all lung volumes. The FEV1 to FVC ratio is reduced. There is no significant improvement after inhaling a single dose of albuterol. The lack of response to a single inhaled beta-agonist treatment does not necessarily indicate irreversible airway obstruction. The inspiratory loop is appropriate for the expiratory flow abnormality. DLCO: The diffusing capacity is decreased. A decreased diffusing capacity may be due to loss of pulmonary capillary surface area. Causes include pulmonary fibrosis (altered V/Q relationship), pulmonary vascular disease, emphysema, or interstitial pneumonitis. Note that the value for diffusing capacity is not corrected for hemoglobin and that anemia may decrease the reported value. Impression: There is a mild obstructive defect. There is a moderate impairment of alveolar gas exchange by DLCO. Troy Jj MD The attending pulmonary physician certifies a physician presence in the [facility] Suite during the administration of aerosolized bronchodilator. The attending pulmonary physician certifies that he/she has reviewed and interpreted the graphic and numerical data of this pulmonary function study and agrees with the written final report. The lower limit of normal for PaO2 and %HbO2 is age dependent. However, the [facility] defines hypoxemia as a PaO2 <56 mm Hg or a %HbO2 <89%. Starting on February of 2024 the [facility] utilizes race neutral GLI Global normative equations. Seun Overton CNC TECHNICIAN PFT ORDERABLES Final Resul t * PET Outside Reference (10/20/2024 8:17 AM CDT) Impressions [facility] - 10/20/2024 8:17 AM CDT These images are for Reference purposes only and have not been reviewed by [facility]. There will be no report generated by a [facility] Radiologist. Narrative [facility] - 10/20/2024 8:17 AM CDT EXAMINATION: Images For Reference Purposes Only Darvin Garcia MD IMG PET PROCEDURES Final Resu lt [facility] * CT Body Outside Reference (10/20/2024 8:17 AM CDT) Impressions [facility] - 10/20/2024 8:17 AM CDT These images are for Reference purposes only and have not been reviewed by [facility]. There will be no report generated by a [facility] Radiologist. Narrative [facility] - 10/20/2024 8:17 AM CDT EXAMINATION: Images For Reference Purposes Only us Darvin Garcia MD IMG CT PROCEDURES Final Resul t [facility] from Last 3 Months Insurance MEDICARE [employer] MEDICARE [employer] FOR LIFE Care Teams Freight Loader Relationship Specialty Start Date End Date Goyo Dinero MD [address] [place] [id number] PCP - General Family Medicine 12/11/19 [place] [address] [place] [address] [address] [place], [place] [id number] Surgeon Thoracic Surgery 10/21/24 [place] [address] [place] [address] [address] [place], [place] [address] Radiation Oncologist Radiation Oncology 10/21/24
--- OUTSIDE RECORDS SUMMARY | 2024-11-13 08:00 | XMS_ITS | Clinical Summary ---
Author Organization [facility] Address [address] [place] [address] Care Team Providers Care Fire Safety Director Name Role Phone Goyo Dinero MD Primary Care Provider [phone] Allergies No known active allergies Medications VENTOLIN [...] COVID-19 Vaccine (1 - 2023-2 5 season) 2024 RSV Immunization or 60+ Years (1 - [...] patient's age to [place] [address] MEDICARE [employer] Care Teams Fire Safety Director Relationship Specialty Start Date End Date Goyo Dinero MD [address] [place] [id number] PCP - General FAMILY PRACTICE 10/16/18
--- OUTSIDE RECORDS SUMMARY | 2024-11-24 10:14 | XMS_ITS | Encounter Summary ---
Author Organization [facility] Address [address] [place] [address] Care Team Providers Care Electric Motor Mechanic Name Role Phone Goyo Dinero MD Primary Care Provider [phone] Darvin Garcia MD Unavailable [phone] Harpreet Bates MD Unavailable [phone] Reason for Referral * MRI/CAT/PET Scan (Routine) - Closed Specialty Diagnoses / Procedures Referred By Susanaac t Referred To Contact Radiology Diagnoses Lung nodule Procedures CT chest without contrast Darvin Garcia MD [address] [facility] [address] [place] [address] Phone: tel: fax: [address] [address] Referral ID Status Reason Start Date Expiration Date Visits Re quested Visits Authorized [id number] Closed 11/18/2024 12/18/2025 1 1 Reason for Visit * MRI/CAT/PET Scan (Routine) - Closed Specialty Diagnoses / Procedures Referred By Contac t Referred To Contact Radiology Diagnoses Lung nodule Procedures CT chest without contrast Darvin Garcia MD [address] [facility] [address] [place] [address] Phone: tel: fax: [address] [phone] Referral ID Status Reason Start Date Expiration Date Visits Re quested Visits Authorized [id number] Closed 11/18/2024 12/18/2025 1 1 Encounter Details Date Type Department Care Team (Latest Contact Info) Description 11/24/2024 10:14 AM CDT - 11/24/2024 11:59 PM CDT Hospital Encounter [address] [address] Lung nodule Discharge Disposition: Discharge to home or self care Social History Tobacco Use Types Packs/Day Years [...] on file Legal Sex Male 4:01 PM [employer] Gender Identity Not on file Sexual Orientation Not on file documented as of this encounter Medications at Time of Discharge albuterol HFA (PROVENTIL HFA,VENTOLIN HFA,PROAIR HFA) 90 mcg/actuation inhaler Inhale 2 puffs every 6 (six) hours as needed for wheezing ALPRAZolam (XANAX) 0.5 mg tablet Take 1 tablet (0.5 mg total) by mouth nightly as needed for sleep 08/10/2023 buPROPion SR (ZYBAN) 150 mg 12 hr tablet Take 1 tablet (150 mg total) by mouth 2 (two) times a day 60 tablet 3 04/02/2024 04/02/2025 cyanocobalamin (Vitamin B-12) 1,000 mcg tabletIndication s:Prevention of Vitamin B12 Deficiency Take 1 tablet (1,000 mcg total) by mouth daily escitalopram (LEXAPRO) 10 mg tablet Take 1 tablet (10 mg total) by mouth daily 09/03/2023 melatonin 10 mg tablet nicotine (NICODERM CQ) [address] 1 patch on the skin daily 02/22/2024 rosuvastatin (CRESTOR) 5 mg tablet Take 1 tablet (5 mg total) by mouth daily 09/26/2023 umeclidinium-carolann anteroL (ANORO ELLIPTA) 62.5-25 mcg/actuation blister with device Inhale 1 puff nightly documented as of this encounter Discharge Disposition Disposition Code Departure Means Destination Discharge to home or self care documented in this encounter Plan of Treatment Not on file documented as of this encounter Procedures Procedure Name Priority Date/Time Associated Diagnosis Comments CT CHEST WO CONTRAST Schedule Routine, Read Routine (OP Routine) 11/24/2024 10:25 AM CDT Lung nodule documented in this encounter Results * CT chest without contrast (11/24/2024 10:25 AM CDT) Anatomical Region Laterality Modality Body N/A Computed Tomogra phy 11/25/2024 6:40 PM CDT Narrative 11/25/2024 6:51 PM CDT EXAM DESCRIPTION: CT CHEST WO CONTRAST REASON FOR STUDY: Lung nodule surveillance Lung nodule surveillance for three months. No prior surgery to heart, lungs, or chest. Prior clavicle surgery. No new symptoms. Smoker for 50 years, 1/2 PPD TECHNIQUE: CT scan of the chest performed without intravenous contrast using helical scanning technique. Reconstructed coronal and sagittal MPR images reviewed. All images stored on PACS. Automated exposure control was used as a dose optimization technique for this examination. COMPARISON: Outside hospital CT chest 08/31/2024, FDG PET-CT 09/30/2024 FINDINGS: The sensitivity for detection of solid visceral lesions is diminished without the use of intravenous contrast. LUNGS: Severe bilateral emphysema. There is mucoid impaction in the medial right upper lobe (2/14) with air-fluid levels and surrounding consolidative opacities, consistent with progressive infectious/inflammatory process. The lobulated perifissural nodule in the right middle lobe is increased in size now measuring 12 mm, previously 7 mm (4/73). PLEURA: No effusion. No pneumothorax. MEDIASTINUM/SENA: No identified masses or abnormal nodes. HEART: Heart size is normal with no pericardial effusion. 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 No aneurysms of the aorta. AXILLA: No adenopathy. CHEST WALL: No masses. No subcutaneous air. HARDWARE/LINES/TUBES: None. UPPER ABDOMEN: No significant abnormality. MUSCULOSKELETAL: No significant abnormality. OTHER: No other significant abnormality. IMPRESSION: 1. Interval increase in size of the lobulated perifissural nodule in the right middle lobe, suspicious for malignancy. Further evaluation with tissue sampling is recommended. 2. New mucoid impaction in the medial right upper lobe with air-fluid levels and surrounding consolidative opacities, consistent with infectious/inflammatory process. 3. Severe bilateral emphysema. THIS IS AN ELECTRONICALLY VERIFIED FINAL REPORT 11/25/2024 6:51 PM - Electronically signed by Taylor Saleh M.D. FT T: Report ID: [id number] Reading Location: [id number] Procedure Note Taylor Griffin MD - 11/25/2024 EXAM DESCRIPTION: CT CHEST WO CONTRAST REASON FOR STUDY: Lung nodule surveillance Lung nodule surveillance for three months. No prior surgery to heart,lungs, or chest. Prior clavicle surgery. No new symptoms. Smoker for 50 years,1/2 PPD TECHNIQUE: CT scan of the chest performed without intravenous contrastusing helical scanning technique. Reconstructed coronal and sagittal MPR images reviewed. All images stored on PACS. Automated exposure control was usedas a dose optimization technique for this examination. COMPARISON: Outside hospital CT chest 08/31/2024, FDG PET-CT 09/30/2024 FINDINGS: The sensitivity for detection of solid visceral lesions is diminished without the use of intravenous contrast. LUNGS: Severe bilateral emphysema. There is mucoid impaction in themedial right upper lobe (2/14) with air-fluid levels and surroundingconsolidative opacities, consistent with progressive infectious/inflammatory process.The lobulated perifissural nodule in the right middle lobe is increased insize now measuring 12 mm, previously 7 mm (). PLEURA: No effusion. No pneumothorax. MEDIASTINUM/SENA: No identified masses or abnormal nodes. HEART: Heart size is normal with no pericardial effusion. 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 No aneurysms of the aorta. AXILLA: No adenopathy. CHEST WALL: No masses. No subcutaneous air. HARDWARE/LINES/TUBES: None. UPPER ABDOMEN: No significant abnormality. MUSCULOSKELETAL: No significant abnormality. OTHER: No other significant abnormality. IMPRESSION: 1. Interval increase in size of the lobulated perifissural nodule in the right middle lobe, suspicious for malignancy. Further evaluation withtissue sampling is recommended. 2. New mucoid impaction in the medial right upper lobe with air-fluidlevels and surrounding consolidative opacities, consistent with infectious/inflammatory process. 3. Severe bilateral emphysema. THIS IS AN ELECTRONICALLY VERIFIED FINAL REPORT 11/25/2024 6:51 PM - Electronically signed by Taylor Saleh M.D. FT T: Report ID: [id number] Reading Location: [place] [address] Darvin Garcia MD IMG CT PROCEDURES Final Resul t documented in this encounter Visit Diagnoses Diagnosis Lung nodule Other diseases of lung, not elsewhere classified documented in this encounter Care Teams Electric Motor Mechanic Relationship Specialty Start Date End Date Goyo Dinero MD [address] [place] [address] PCP - General Family Medicine 12/11/19 Darvin Garcia MD [address] [place] [address] [address] [place], [place] [address] Surgeon Thoracic Surgery 10/21/24 Harpreet Bates MD [address] [place] [address] [address] [place], [place] [address] Radiation Oncologist Radiation Oncology 10/21/24 documented as of this encounter
--- OUTSIDE RECORDS SUMMARY | 2024-11-26 09:51 | XMS_ITS | Clinical Summary ---
Author Organization [facility] Address [address] [place] [address] Care Team Providers Care Supervisor Hot Dip Plating Name Role Phone Unavailable Primary Care Provider Unavailabl e Source Comments [facility],non-owned Affiliates and Associated Physician Practices is amultiple site organization consisting of ambulatory clinics and hospital sitesin [place], [place], [place] and [place]. This disclosure is being madepursuant to the Care Everywhere program and may not contain all information available regarding this patient. Last updated 17.[facility] Social History Tobacco Use Types Packs/Day Years [...] 2) 10/28/1999 DEPRESSION SCREENING 02/13/2024 COVID-19 VACCINE (1 - 2023-2 5 season) 2024 INFLUENZA VACCINE [...]
--- OUTSIDE RECORDS SUMMARY | 2024-11-26 09:51 | XMS_ITS | Encounter Summary ---
Author Organization [facility] Address [address] [place] [address] Care Team Providers Care Malt Liquors Sales Representative Name Role Phone Unavailable Primary Care Provider Unavailabl e Encounter Details Date Type Department Care Team (Late st Contact Info) Description 11/27/2023 Lab Requisition [facility] - DermPath Lab [address] [facility] [place] [address] Natalia Cowan DO [address] [facility] [address] DEPT [place] [address] Social History Tobacco Use Types Packs/Day Years [...] AM CDT) Case Report Dermatopathology Report Case: [id number] Authorizing Provider: Natalia Cowan DO Collected: 11/27/2023 10:58 AM Ordering Location: [facility] - Received: 11/28/2023 06:18 AM DermPath Lab Pathologist: Nataliya Osuna MD Specimen: Skin, right cheek 1:22 PM CDT DERMATOPATHOLOGY LABORATORY Final Diagnosis Specimen A. SKIN, right cheek: BASAL CELL CARCINOMA, PIGMENTED (C44.319) 4 1:22 PM CDT DERMATOPATHOLOGY LABORATORY at 1322 [...] purposes. Billing Codes Specimen Charges Stain Charges [id number] 1 1:22 PM CDT DERMATOPATHOLOGY LABORATORY Embedded Images 1:22 PM CDT DERMATOPATHOLOGY LABORATORY Pathology/Cytolo gy TISSUE SPECIMEN FROM SKIN / Unknown 11/27/2023 10:58 AM CDT 11/28/2023 6:18 AM CDT us Natalia Cowan DO LAB - PATHOLOGY/CYTOLOGY ORDERABLES Final Result DERMATOPATHOLOGY LABORATORY [facility] - Department of Dermatology [address] [place] [address], [facility] [phone] documented in this encounter Visit Diagnoses Not on filedocumented in this encounter
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
--- OUTSIDE RECORDS SUMMARY | 2024-11-26 09:51 | XMS_ITS | Clinical Summary ---
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
--- NOTE | 2024-12-15 09:16 | WPDSLEEPSTUD ---
Sleep Study Date of Study: 11/26/24 Ordering Provider: Goyo Dinero MD Interpreting Physician: Lisa Caldwell MD Sleep Study Type: Polysomnogram Height: 1.73 m Weight: 74.843 kg Body Mass Index: 25.0 Neck Circumference (inches): 16.5 Dexter: 13 Reason for Sleep Study Witnessed apneas, low oxygen levels at night Hhistory of obstructive sleep apnea, has worn CPAP for 10 years, having a study to see if he neends O2 with sleep Sleep History Faustino Magallanes is a 74-year-old man with obstructive sleep apnea Who has worn CPAP for 10 years. He presents for a sleep study to see if he needs oxygen during the night, He rarely awakens from sleep feeling short of breath. He occasionally wakes at night with heartburn, belching or coughing.??He frequently snores, and frequently snores loudly enough that others complain. He frequently has trouble sleeping when he has a cold. He frequently wakes up gasping for breath during the night. He frequently has breathing problems at night observed by others. He occasionally sweats excessively at night. He occasionally notices his heart pounding or beating irregularly during the night. He frequently falls asleep during the day. He frequently falls asleep involuntarily, never falls asleep while driving. He rarely experiences loss of muscle tone with strong emotion. He rarely has daytime difficulty at work due to excessive sleepiness. He rarely feels paralyzed on waking or falling asleep. He rarely experiences vivid dreams upon waking or falling asleep. He rarely feels afraid of going to sleep. He rarely has nightmares. He rarely recalls his dreams. He occasionally has thoughts racing through his mind. He rarely feels sad, depressed, or anxious. He occasionally notices parts of his body jerk. He rarely kicks during the night. He occasionally feels crawling or aching feelings in his legs. He frequently feels leg pain at night. He rarely has morning jaw pain, rarely grinds his teeth at night. He rarely feels bothered by pain during the day, rarely awakened by pain during the night. He occasionally wakes up feeling stiff in the morning, and he occasionally wakes feeling sore or achy. He occasionally awakens with pain in his neck, spine, or joints. he has memory problems, concentration difficulties, fatigue, dizziness and he takes sedatives. Information from his office visit on 09/01/2024 says that he has used alcohol at night because he got tired of not sleeping. He fell and broke his collarbone in May with surgery 10 days later with a steel plate that he can still feel. His mind will not shut off at night. He turns the television on but the TV keeps him awake. Xanax he gives him about an hour of sleep. Normal bedtime is Between 10 and 4, requiring 3 hours fall asleep, typically waking 3 hours during his sleep episode for an hour on average. These awakenings occur soon after falling asleep and in the middle of his sleep episode. While awake, he watches television. His wake time is 9. He maintains the same schedule on weekends. He estimates getting between 6 and 7 hours of sleep at night. He sleeps in a recliner. He takes naps in the afternoon or evening. A short nap lasting 10-15 minutes is not refreshing. He is drowsy for 2 hours after waking. He feels better in the afternoon compared to other times a day. Habits:??Tobacco:a half pack per day Caffeine: 2 cups, 12 oz Alcohol: none Recreational substances: none PMFSH Past Medical History Medical History (Updated 12/15/24 @ 10:05 by Lisa Caldwell MD) Peripheral neuropathy Benign prostatic hyperplasia with lower urinary tract symptoms Major depressive disorder Nonsustained paroxysmal ventricular tachycardia GERD without esophagitis Alcohol use disorder, moderate, in early remission Atherosclerotic heart disease of [place] coronary artery without angina pectoris Atherosclerosis of aorta COPD (chronic obstructive pulmonary disease) Cigarette nicotine dependence with nicotine-induced disorder Obstructive sleep apnea Hypercholesteremia Essential (primary) hypertension Family History Family History Father Heart disease COPD (chronic obstructive pulmonary disease) Mother Dementia Social History Social History Smoking packs per day: 0.5 Smoking cigarettes per day: 10.0 Years smoked: 50 Smoking pack-years: 25.00 Smoking status: Current every day smoker Tobacco type: cigarettes Second hand tobacco smoke exposure: Yes Alcohol intake: current Drinks per week: 15 Substance use: never Substance use type: does not use Do You Feel Safe in your Home?: Yes Lack of Transportation: No Lack of Food: Never True Current Housing: I Have Housing Concerned About Future Housing: No Difficulty Paying Gas/Electric Bills: No Difficulty Paying for Meds: No Currently Unemployed: No Education: Associate Degree Difficulty w/ Childcare or Family Care: No Living arrangements: with family Occupation/Education: retired Gender identity (if verbalized by the patient): Male Sexual Orientation (if Verbalized by the Patient): Straight or Heterosexual Spiritual care concerns: No Medications Home Medications ?Medication ?Instructions ?Recorded ?Confirmed ?Type aspirin 81 mg tablet,delayed 81 mg PO DAILY 10/03/23 09/01/24 History release umeclidinium 62.5 mcg-vilanterol 1 inh inhalation DAILY #180 ea 08/21/24 09/01/24 Rx 25 mcg/actuation powdr for inhalation escitalopram oxalate 10 mg tablet 10 mg PO DAILY #90 tabs 09/01/24 09/01/24 Rx metoprolol succinate 25 mg 25 mg PO DAILY #90 tabs 09/01/24 09/01/24 Rx tablet,extended release 24 hr rosuvastatin 5 mg tablet 5 mg PO DAILY #90 tabs 09/01/24 09/01/24 Rx alprazolam 0.5 mg tablet 0.5 mg PO QHS PRN sleep #30 tabs 10/23/24 Rx Sleep Procedure A full night polysomnogram using the [employer] multi-channel system recorded the standard physiologic parameters including EEG, EOG, submentalis EMG, anterior tibialis EMG, EKG, body position, nasal and oral airflow using nasal pressure sensor and thermistor. Respiratory parameters of chest and abdominal movements were recorded with Respiratory Inductance Plethysmography belts. Oxygen saturation was recorded by pulse oximetry. Video monitoring was also performed. Sleep stages, periodic limb movements, and EEG arousals were scored in 30 second epochs according to the criteria of the AASM Scoring Manual. The Apnea-Hypopnea Index was calculated using CMS guidelines for definition of hypopnea while scoring respiratory events. The patient fell asleep before lights out, the start of the study. He then woke up and had prolonged sleep latency. This test was ordered as a split night study however the patient did not meet criteria and this was conducted as a full night basic nocturnal polysomnogram. There were is no mention that the patient took a sleep aid. Sleep Architecture The total recording time was 425.9 minutes. The total sleep time was 226.0 minutes. Sleep latency was 20.3 minutes. REM latency was 224.0 minutes. Sleep efficiency was 53.1%. The patient had 45 awakenings for an awakening index of 11.9. Wake after sleep onset time was 179.5 minutes. The patient spent 58.0 minutes, 25.7% of total sleep time in Stage N1. The patient spent 140.5 minutes, 62.2% in Stage N2. The patient spent no time in Stage N3. The patient spent 27.5 minutes, 12.2% in Stage REM sleep. Respiratory Analysis The patient had 1 hypopneas, 1 obstructive apneas, no mixed apneas, and no central apneas for an overall Apnea Hypopnea Index of 0.5. The REM Apnea Hypopnea Index was 0. The NREM Apnea Hypopnea Index was 0.6. The patient had a Central Apnea Hypopnea Index of 0. There were no Respiratory Effort Related Arousals. The Respiratory Disturbance Index is 0.5 events per hour. There was no evidence of Crescencio-Craig Respirations. Arousals There were 241 total arousals for an arousal index of 64.0. There were 196 spontaneous arousals for an index of 52.0. There were 2 arousals due to respiratory events for an index of 0.5. There were 21 arousals due to periodic limb movements for an index of 5.6. There were 22 arousals due to isolated limb movements for an index of 5.8. Periodic Limb Movements The patient had 46 isolated limb movements with an index of 12.2. The patient had 95 periodic limb movements with an index of 25.2. Patient had a total of 141 limb movements with a total limb movement index of 37.4. Oximetry Data The patient had an average oxygen saturation of 88.4% in sleep with a minimum oxygen saturation of 82% and a maximum oxygen saturation of 94%. The patient had 1 oxygen desaturation that was 4% or greater resulting in an Oxygen Desaturation Index of 0.3. The patient spent 218.6 minutes, 52% of total sleep time with an oxygen saturation below 88%. Snoring Profile Snoring was mild overall and intermittent. Cardiac Profile The EKG showed normal sinus rhythm, average pulse rate of 59.6 bpm with a minimum pulse of rate of 53 bpm and a maximum pulse rate of 78 bpm. No arrhythmias noted. EEG Profile Unremarkable, no evidence of seizures. Assessment and Plan Assessment and Plan (1) Obstructive sleep apnea: Code(s): G47.33 - Obstructive sleep apnea (adult) (pediatric) Status: Acute Assessment and Plan: This basic nocturnal polysomnogram on 11/26/2024 does not show obstructive sleep apnea. The apnea-hypopnea index is 0.5 however he did desaturate to 82% and spent the majority of the night, 52% of the night, 218.6 minutes, equal to or below 88% saturation. He has COPD and had a cold at the time of testing. This patient has a history of obstructive sleep apnea and has worn CPAP for the last 10 years. It is possible that he did not demonstrate apneas on this test due to wearing CPAP in the 3 nights leading up to the study. Wearing CPAP for 3 nights leading up to his sleep study will provide residual airway tone, reducing the overall severity of obstructive sleep apnea temporarily. This study shows that he does qualify for oxygen at night however he was not wearing his CPAP. It is not known whether or not he wore CPAP in the nights leading up to testing. Based on the results of this study alone he qualifies for supplemental oxygen. I would recommend 2 liters/minute and an overnight oximetry on 2 L a minute to determine if this is sufficient to eliminate his nocturnal hypoxemia. (2) Restless legs syndrome (RLS): Code(s): G25.81 - Restless legs syndrome Status: Acute Assessment and Plan: He has occasional problems with crawling and aching feelings in his legs, says that he rarely kicks. On this study his periodic limb movement index was elevated 25.2, his limb movement arousal index is 11.4. This is above normal. This might have been due to not using his CPAP which he normally wears every night. Consider checking a ferritin level to exclude iron deficiency anemia as a contributing factor. Ferritin should be 75 ng/mL or greater. If ferritin is below this, iron supplementation should be given to achieve ferritin of 75 ng/mL. There are nonpharmacologic methods to treat limb movements including daily exercise, stretching calf muscles before bed, avoiding excessive amounts of caffeine and alcohol, vitamin B supplementation, magnesium lotion massaged into legs before bed, and use of a weighted blanket. Pharmacologic therapy is very effective for restless legs syndrome and limb movements during sleep and may include [id number] voltage-gated calcium channel ligands such as gabapentin which is preferable to dopaminergic agents which can have augmentation. (3) Inadequate sleep hygiene: Code(s): Z72.821 - Inadequate sleep hygiene Status: Acute Assessment and Plan: He reports going to be between 10:00 pm and 4:00 am, often taking 3 hours fall asleep however he does nap during the day. Naps later in the day will cause difficulty in going to sleep at night. He has ruminating thoughts at bedtime, has used Xanax and at times alcohol to get to sleep. Alcohol can cause rebound awakening during the night although there is a sedative effect immediately after drinking alcohol. Consider screening the patient for mood abnormalities with GAD7 and PHQ-9 and treating if indicated. Recommendations to improve sleep quality include: ? Practice a bedtime routine and keep the same sleep schedule including bedtime and wake up time, even on the weekends. Consistency makes it much easier to fall asleep and wake easily. ? If you have trouble sleeping at night, avoid naps, especially in the late afternoon. However, short naps lasting approximately 20 minutes can help alleviate daytime fatigue, sleepiness, and even provide cognitive benefit. Naps longer than 30 minutes can cause sleep inertia, a period of reduced alertness and cognitive performance after waking. ? Exercise daily. ? Maintain a sleep environment conducive to sleep. The bedroom should be comfortably cool. In population studies, nocturnal environmental light and noise significantly impact sleep quality and quantity. Use of blackout curtains, ear plugs, or sound machines may help promote an optimal sleep environment for individuals with sleep disruptions due to environmental stimuli. ? Sleep on a comfortable mattress and pillows. ? Regular bright light exposure in the mornings may help to maximize alertness and maintain a regular circadian rhythm. Studies in extreme latitudes where sunlight is minimal in the winter have found that an hour of exposure to white light in the morning helped subjects go to sleep earlier and wake earlier. Exposure to blue light in the morning may have more robust effects on the stability of the circadian rhythm and has been shown to improve daytime fatigue and sleepiness. ? Avoid cigarettes, caffeine, and heavy meals in the evening. While alcohol use does seem to reduce the time it takes to fall asleep, studies have reported that evening alcohol intake can cause more waking time or light sleep in the second half of the night and reduce self-reported sleep quality. Evening nicotine is associated with lower sleep efficiency and more awake time during the night. ? Wind down with quiet activities that may promote sleep, such as reading with a dim light. Avoid use of electronics at least 30 minutes before habitual bedtime and in the middle of the night if nocturnal awakenings occur. The blue light emitted from computer screens and hand-held devices can suppress natural melatonin production, resulting in difficulty falling asleep; however, the exact duration of use and intensity of lighting that cause this effect are variable in the literature. ? If you cannot sleep, do not look at a clock. Go into another room and do something relaxing until you feel drowsy enough to fall asleep again. Then return to bed. Data The data obtained during this sleep study is adequate for interpretation. Certification This sleep study has been reviewed by a board certified sleep medicine physician.
[2024-12-15 09:26] VITALS: BMI 25.0
== END 2024-11-27 05:46 | disposition home or self-care (01) ==
PROVIDERS: PCP Family Medicine; Visit Provider Family Medicine
DX: G47.33 Obstructive sleep apnea (adult) (pediatric) (principal); G25.81 Restless legs syndrome; Z72.821 Inadequate sleep hygiene
CPT/HCPCS: 95810; 99199